=== PATIENT | female | born 1945 | race Caucasian/White ===

== ENCOUNTER → 2016-02-23 | Outpatient (CLI) | payer MEDICARE, BC ==
--- NOTE | 2016-02-23 11:38 | MM ---
Reason for exam: follow-up at short interval from prior study. Last mammogram was performed 4 years and 4 months ago. History: Patient is postmenopausal and is nulliparous. Physical Findings: Nurse did not find any significant physical abnormalities on exam. MG 3D Diag Mammo W/Cad LT CC and MLO view(s) were taken of the left breast. Prior study comparison: November 02, 2011, bilateral digital screening mammo w/CAD. April 30, 2008, bilateral digital screening mammogram. There are scattered fibroglandular densities. There is chronic nodularity in the left breast. There is no dominant lesion. No significant new findings when compared with previous films. These results were verbally communicated with the patient and result sheet given to the patient on 02/23/16. ASSESSMENT: Benign, BI-RAD 2 RECOMMENDATION: Routine screening mammogram of both breasts in 6 months. Back on schedule.
== END | disposition home or self-care (01) ==
LOC: RADMAMWWP 10:11
PROVIDERS: ATTEND Obstetrics & Gynecology
DX: R92.8 Other abnormal and inconclusive findings on diagnostic imaging of breast (principal)
CPT/HCPCS: 77051; G0206; G0279

== ENCOUNTER 2016-07-10 09:14 | Emergency (ER) | payer MEDICARE, BC ==
[2016-07-10 09:20] VITALS: BP 183/79; PULSE 74; RESP 20; TEMP 98.1
--- NOTE | 2016-07-10 09:49 | ED ---
General Adult HPI - General Chief complaint: Dental/Oral Stated complaint: tounge problem Time Seen by Provider: 07/10/16 09:23 Source: patient, RN notes reviewed Mode of arrival: ambulatory Limitations: no limitations - History of Present Illness Initial comments: Patient 71-year-old female who presents emergency room today with a chief complaint of a cut to the tip of her tongue. She states she was at the dentist on July 05. She states she had to controls working on her bottom teeth. She states she was numbed up she felt fine when she went home she noticed that there was some blood at the tip of her tongue. She states she's had increased sensitivity to this area over the last 5 days. She states over the first few days she did notice some blood at times. She states she's not noticed any blood the last few days. She states it is still very tender and sensitive to certain foods and at times. She denies any other complaints or states she can no longer see the cut herself. She states she came here because she did not know what else to do. She states she had thoughts of talking to an commercial real estate attorney about this case she feels like it is not right that the cut her tongue because they were only supposed to work on her teeth. Patient denies any other complaints or symptoms. Patient denies any recent fever, chills, shortness of breath, chest pain, back pain, abdominal pain, nausea or vomiting, numbness or tingling, dysuria or hematuria, constipation or diarrhea, headaches or visual changes, or any other complaints. - Related Data Home Medications Medication Instructions Recorded Confirmed Levothyroxine Sodium [Synthroid] 25 mcg PO DAILY 07/10/16 07/10/16 Simvastatin [Zocor] 20 mg PO HS 07/10/16 07/10/16 busPIRone HCl [Buspar] 5 mg PO BID 07/10/16 07/10/16 Allergies Allergy/AdvReac Type Severity Reaction Status Date / Time No Known Allergies Allergy Verified 07/10/16 09:20 Review of Systems ROS Statement: Those systems with pertinent positive or pertinent negative responses have been documented in the HPI. ROS Other: All systems not noted in ROS Statement are negative. Past Medical History Past Medical History: Hyperlipidemia, Thyroid Disorder History of Any Multi-Drug Resistant Organisms: None Reported Past Surgical History: No Surgical Hx Reported Past Psychological History: Depression Smoking Status: Former smoker Past Alcohol Use History: None Reported Past Drug Use History: None Reported General Exam - General Exam Comments Initial Comments: General: The patient is awake and alert, in no distress, and does not appear acutely ill. Eye: Pupils are equal, round and reactive to light, extra-ocular movements are intact. No nystagmus. There is normal conjunctiva bilaterally. No signs of icterus. Ears, nose, mouth and throat: There are moist mucous membranes and no oral lesions. No evidence for a cut. No sign of infection. No tenderness over the gumline. Neck: The neck is supple. No JVD. Cardiovascular: There is a regular rate and rhythm. No murmur, rub or gallop is appreciated. Respiratory: Lungs are clear to auscultation, respirations are non-labored, breath sounds are equal. No wheezes, stridor, rales, or rhonchi. Musculoskeletal: Normal ROM, no tenderness. Strength 5/5. Sensation intact. Pulses equal bilaterally 2+. Neurological: A&O x 3. CN II-XII intact, There are no obvious motor or sensory deficits. Coordination appears grossly intact. Speech is normal. Skin: Skin is warm and dry and no rashes or lesions are noted. Psychiatric: Cooperative, appropriate mood & affect, normal judgment. Limitations: no limitations Course Vital Signs 07/10/16 09:16 Temperature 98.1 F Pulse Rate 74 Respiratory 20 Rate Blood Pressure 183/79 O2 Sat by Pulse 96 Oximetry Medical Decision Making - Medical Decision Making Patient is advised follow-up the dentist and she is advised to bring up her concerns to the dentist first before any work is performed. She is advised to continue with her pain medicine of Tylenol and Aleve at home that she's been taking with some relief of the symptoms. She is advised return to the emergency room for any other concerns. Disposition Clinical Impression: Painful tongue Disposition: HOME SELF-CARE Condition: Good Additional Instructions: Please continue using your pain medicine that you have been for the last few days for your symptoms. Please follow-up with your dentist over the next 2 days. Please bring appear concerns to him as discussed. Please return to emergency room for any other concerns. Referrals: Agnieszka Street MD [Primary Care Provider] - 1-2 days Time of Disposition: 09:48
== END 2016-07-10 09:55 | disposition home or self-care (01) ==
LOC: EC 09:14
DX: K14.6 Glossodynia (principal); E78.5 Hyperlipidemia, unspecified; E07.9 Disorder of thyroid, unspecified; F32.9 Major depressive disorder, single episode, unspecified; Z87.891 Personal history of nicotine dependence; Z79.899 Other long term (current) drug therapy
CPT/HCPCS: 99282

== ENCOUNTER → 2016-09-02 | Outpatient (CLI) | payer MEDICARE, BC ==
--- NOTE | 2016-09-02 10:13 | MM ---
Reason for exam: screening (asymptomatic). Last mammogram was performed 6 months ago. History: Patient is postmenopausal and is nulliparous. Physical Findings: A clinical breast exam by your physician is recommended on an annual basis and results should be correlated with mammographic findings. MG 3D Screening Mammo W/Cad Bilateral CC and MLO view(s) were taken. Prior study comparison: February 23, 2016, left breast MG 3d diag mammo w/cad LT. November 02, 2011, bilateral digital screening mammo w/CAD. The breast tissue is heterogeneously dense. This may lower the sensitivity of mammography. Finding: There are vascular calcifications. There is no discrete abnormality. No significant changes in finding since February 23, 2016 and November 02, 2011. These results were verbally communicated with the patient and result sheet given to the patient on 09/02/16. ASSESSMENT: Benign, BI-RAD 2 RECOMMENDATION: Routine screening mammogram of both breasts in 1 year.
== END | disposition home or self-care (01) ==
LOC: RADMAMWWP 09:22
PROVIDERS: ATTEND Obstetrics & Gynecology
DX: Z12.31 Encounter for screening mammogram for malignant neoplasm of breast (principal)
CPT/HCPCS: 77063; G0202

== ENCOUNTER → 2018-04-17 | Outpatient (CLI) | payer MEDICARE, BC ==
--- NOTE | 2018-04-17 17:09 | CT ---
EXAMINATION TYPE: CT brain wo con DATE OF EXAM: 04/17/2018 HISTORY: Dizziness and unsteady gait CT DLP: 1135 mGycm. Automated Exposure Control for Dose Reduction was Utilized. TECHNIQUE: CT scan of the head is performed without contrast. COMPARISON: None. FINDINGS: There is no acute intracranial hemorrhage or midline shift identified. There is diffuse v entricular and sulcal prominence consistent with diffuse age-related cerebral atrophy. There is low- attenuation in the periventricular white matter consistent with chronic small vessel ischemic change. There is old infarct involving periphery of the right frontal and temporal lobes. The globes are int act and the visualized sinuses are clear. IMPRESSION: No acute intracranial hemorrhage or midline shift. 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
== END | disposition home or self-care (01) ==
LOC: RADCTMAIN 15:40
PROVIDERS: ATTEND Family Medicine
DX: G31.1 Senile degeneration of brain, not elsewhere classified (principal); I67.82 Cerebral ischemia
CPT/HCPCS: 70450

== ENCOUNTER → 2018-05-24 | Outpatient (CLI) | payer MEDICARE, BC ==
--- NOTE | 2018-05-24 11:24 | US ---
EXAMINATION TYPE: US thyroid st tissue head/neck DATE OF EXAM: 05/24/2018 COMPARISON: US CLINICAL HISTORY: E03.8 Other specified hypothyroidism. Hypothyroidism, pt states difficulty swallowi ng, coughing GLAND SIZE: Right Lobe: 3.1 X 0.9 X 1.2 cm Overall Parenchyma: homogenous Left Lobe: 2.9 X 0.8 X 1.1 cm Overall Parenchyma: homogeneous Isthmus Thickness: 0.2 cm NODULES LEFT: # of nodules measured on left: 1 1. 0.3 X 0.3 x 0.2 cm hypoechoic solid nodule at the upper pole with well-defined margins; This no dule is wider than tall and shows intranodular vascularity. Prior size: Not visualized on prior Bilateral neck scanned, no evidence of lymphadenopathy. Small thyroid gland bilaterally, Small nodule on left lobe. Homogeneous small size thyroid with tiny 3 mm medial nodule left thyroid lobe marked by technologist on current study image 27. IMPRESSION: Small size thyroid without worrisome greater than 1 cm solid or cystic nodule.
== END ==
LOC: RADUSWWP 10:31
PROVIDERS: ATTEND Internal Medicine Endocrinology, Diabetes & Metabolism
DX: E07.89 Other specified disorders of thyroid (principal)
CPT/HCPCS: 76536

== ENCOUNTER → 2018-06-09 | Outpatient (CLI) | payer MEDICARE, BC ==
--- NOTE | 2018-06-13 13:22 | MM ---
Reason for exam: screening (asymptomatic). Last mammogram was performed 1 year and 9 months ago. History: Patient is postmenopausal and is nulliparous. Physical Findings: A clinical breast exam by your physician is recommended on an annual basis and results should be correlated with mammographic findings. MG 3D Screening Mammo W/Cad Bilateral CC and MLO view(s) were taken. Prior study comparison: September 02, 2016, bilateral MG 3d screening mammo w/cad. February 23, 2016, left breast MG 3d diag mammo w/cad LT. The breast tissue is heterogeneously dense. This may lower the sensitivity of mammography. Left superior anterior asymmetric density partially disperses on 3D. Otherwise, no significant new finding. ASSESSMENT: Incomplete: need additional imaging evaluation, BI-RAD 0 RECOMMENDATION: Special view mammogram of the left breast. (3D) Manage on a clinical basis with regard to breast pain. If lesion persists on supplemental views, image directed ultrasound is recommended. [facility] will attempt to contact patient to return for supplemental views and ultrasound if indicated.
== END | disposition home or self-care (01) ==
LOC: RADMAMWWP 13:46
PROVIDERS: ATTEND Obstetrics & Gynecology
DX: Z12.31 Encounter for screening mammogram for malignant neoplasm of breast (principal)
CPT/HCPCS: 77063; 77067

== ENCOUNTER → 2018-06-15 | Outpatient (CLI) | payer MEDICARE, BC ==
--- NOTE | 2018-06-15 13:12 | MM ---
Reason for exam: additional evaluation requested from abnormal screening. Last mammogram was performed less than 1 month ago. History: Patient is postmenopausal and is nulliparous. Physical Findings: Nurse did not find any significant physical abnormalities on exam. MG 3D Work Up W/Cad LT Spot compression CC and LM view(s) were taken of the left breast. Prior study comparison: June 09, 2018, bilateral MG 3d screening mammo w/cad. September 02, 2016, bilateral MG 3d screening mammo w/cad. The breast tissue is heterogeneously dense. This may lower the sensitivity of mammography. The previously seen abnormality resolves on additional views and appears as fibroglandular tissue compatible with summation. Left upper outer quadrant middle depth focal asymmetry appears similar to 2016. These results were verbally communicated with the patient and result sheet given to the patient on 06/15/18. ASSESSMENT: Negative, BI-RAD 1 RECOMMENDATION: Return to routine screening mammogram schedule for both breasts.
== END | disposition home or self-care (01) ==
LOC: RADMAMWWP 11:43
PROVIDERS: ATTEND Obstetrics & Gynecology
DX: R92.8 Other abnormal and inconclusive findings on diagnostic imaging of breast (principal)
CPT/HCPCS: 77065; G0279; 77061

== ENCOUNTER 2018-10-06 11:49 | Emergency (ER) | payer MEDICARE, BC ==
[2018-10-06 11:58] VITALS: BP 142/88; PULSE 72; RESP 18; TEMP 98.1
--- NOTE | 2018-10-06 13:54 | XR ---
EXAMINATION TYPE: XR Hip LT and AP Pelvis DATE OF EXAM: 10/06/2018 COMPARISON: NONE HISTORY: Pain from fall 2 months prior TECHNIQUE: A single AP view of the pelvis is obtained. Two views of the left hip are obtained. FINDINGS: There is no acute fracture/dislocation evident in the pelvis. The hip and sacroiliac join ts appear symmetric and unremarkable. The overlying soft tissue appears unremarkable. Two views of left hip show no acute fracture or dislocation. No focal lytic or sclerotic lesion seen in the proximal left femur. The overlying soft tissue is unremarkable. Degenerative disc changes are present in the lumbar spine. Vascular calcifications present within the pelvis. IMPRESSION: There is no acute fracture or dislocation in the pelvis or left hip. Degenerative disc d isease lumbar spine.
--- NOTE | 2018-10-06 13:58 | XR ---
Left knee HISTORY: Pain from fall 2 months prior 3 views of left knee Bone mineralization, joint spaces and alignment are maintained. No evident joint effusion. IMPRESSION: No fracture or dislocation.
--- NOTE | 2018-10-06 14:08 | XR ---
Left shoulder and left humerus HISTORY: Trauma 2 minutes prior, pain 3 views of the left shoulder, 2 views of the left humerus Bone mineralization mildly reduced. Joint spaces and alignment are maintained. Soft tissue ossificati on present at the lateral aspect of the left upper extremity measuring 9 mm is indeterminate. No evid ent elbow joint effusion. IMPRESSION: No fracture or dislocation of the left humerus or shoulder.
--- NOTE | 2018-10-06 14:09 | CT ---
EXAMINATION TYPE: CT cervical spine wo con DATE OF EXAM: 10/06/2018 COMPARISON: None HISTORY: Fall, pain CT DLP: 262.[address] of the cervical spine was performed with bone and soft tissue window settings submitted . Coronal and sagittal reconstruction is obtained. C2-3: Within normal limits C3-4: 4 mm anterolisthesis of C3 on C4 related to severe arthropathy of the cervical apophyseal joint s. Severe degenerative change noted. Posterior disc bulge. No central stenosis. Bilateral foraminal e ncroachment. C4-5: Severe disc desiccation. Endplate sclerosis with ventral and dorsal spondylosis. Effacement robyn tral thecal sac with mild central stenosis. Bilateral foraminal encroachment. C5-6:Severe disc desiccation. Endplate sclerosis with ventral and dorsal spondylosis. Effacement vent ral thecal sac with mild central stenosis. Bilateral foraminal encroachment. C6-7:Severe disc desiccation. Endplate sclerosis with ventral and dorsal spondylosis. Effacement vent ral thecal sac with mild central stenosis. Bilateral foraminal encroachment. C7-T1: Severe disc desiccation. Ventral and dorsal spondylosis. No herniation or central stenosis. No foraminal encroachment. No evidence for acute fracture at this time. IMPRESSION: 1. Multilevel degenerative disc disease and central stenosis. Anterolisthesis C3 on C4.
--- NOTE | 2018-10-06 14:21 | CT ---
EXAMINATION TYPE: CT thor lumbar spine wo con DATE OF EXAM: 10/06/2018 COMPARISON: None HISTORY: Fall, pain CT DLP: 877.[address] of the gastric and lumbar spine was performed. Bone and soft tissue window settings ar e submitted as well as coronal and sagittal reconstructions. Thoracic spine: Curvature convex to the right. T8-T12 vacuum disc noted with endplate sclerosis and i rregularity seen. Ventral spondylosis. Posterior disc bulge. No central stenosis or nic herniation. Remaining levels are within normal limits. Lumbar spine: Grade 1 anterolisthesis L5 on S1 of 7.7 mm with bilateral spondylolysis. Bilateral fora holly encroachment. Vacuum disc at all lumbar levels with endplate sclerosis and irregularity seen. V entral and dorsal spondylosis noted. L2-3 mild central stenosis. Foraminal encroachment and facet gali nt arthropathy at all levels. No paraspinal masses are identified. No compression fractures or bony destructive processes are evide nt. IMPRESSION: 1. Multilevel degenerative disc disease and spondylosis. 2. Grade 1 anterolisthesis L5 on S1 with bilateral spondylolysis. 3. No acute fracture seen.
--- NOTE | 2018-10-06 15:02 | ED ---
Fall HPI - General Chief Complaint: Fall Stated Complaint: bilat knee pain Time Seen by Provider: 10/06/18 11:55 Source: patient Mode of arrival: ambulatory Limitations: no limitations - History of Present Illness Initial Comments: The patient is a 73-year-old female who presents to the emergency department with reported fall 2 months ago. States that she was attempting to cross the street when she tripped and fell onto the concrete. She fell onto her left side. She refused hospital transfer at that time. Denied any blunt head trauma. She states that progressively since the incident she's been having left shoulder and left knee pain. She has not followed up with her primary care physician for evaluation. She normally takes NSAIDs at home for the pain. States that it has been controlled. As the pain has been persistent, she did present today for evaluation. She is right hand dominant. She denies any neck pain. Does report to thoracic and lumbar back pain which is chronic. Denies any fevers or chills. Denies any bowel or bladder incontinence. No saddle anesthesia. Denies any weakness in her upper extremities. No numbness or tingling. Denies any chest pain or shortness breath. There are no other alleviating, precipitating or modifying factors - Related Data Home Medications Medication Instructions Recorded Confirmed busPIRone HCl [Buspar] 5 mg PO DAILY 07/10/16 10/06/18 Levothyroxine Sodium [Synthroid] 50 mcg PO DAILY 10/06/18 10/06/18 Lovastatin [Mevacor] 40 mg PO DAILY 10/06/18 10/06/18 Allergies Allergy/AdvReac Type Severity Reaction Status Date / Time No Known Allergies Allergy Verified 10/06/18 14:35 Review of Systems ROS Statement: Those systems with pertinent positive or pertinent negative responses have been documented in the HPI. ROS Other: All systems not noted in ROS Statement are negative. Past Medical History Past Medical History: Hyperlipidemia, Thyroid Disorder History of Any Multi-Drug Resistant Organisms: None Reported Past Surgical History: No Surgical Hx Reported Past Psychological History: Anxiety, Depression Smoking Status: Former smoker Past Alcohol Use History: None Reported Past Drug Use History: None Reported General Exam Limitations: no limitations General appearance: alert, in no apparent distress Head exam: Present: atraumatic, normocephalic, normal inspection Eye exam: Present: normal appearance, PERRL, EOMI. Absent: scleral icterus, conjunctival injection, periorbital swelling Neck exam: Present: normal inspection, tenderness (mild tenderness of the paraspinal muscles C2-C4. No step offs or deformities. Negative Spurling.). Absent: meningismus, lymphadenopathy Respiratory exam: Present: normal lung sounds bilaterally. Absent: respiratory distress, wheezes, rales, rhonchi, stridor Cardiovascular Exam: Present: regular rate, normal rhythm, normal heart sounds. Absent: systolic murmur, diastolic murmur, rubs, gallop, clicks GI/Abdominal exam: Present: soft, normal bowel sounds. Absent: distended, tenderness, guarding, rebound, rigid Extremities exam: Present: normal inspection, full ROM, normal capillary refill, other (the patient has tenderness with the lift off test and empty can test. She has 2+ radial and ulnar pulses. Comartments are soft in the upper extremities. She has tenderness to palpation of the glenohumeral joint. She does continue to have 5/5 muscle strength in the bilateral upper extremities. ). Absent: tenderness, pedal edema, joint swelling, calf tenderness Back exam: Present: normal inspection Neurological exam: Present: alert, oriented X3, CN II-XII intact Psychiatric exam: Present: normal affect, normal mood Skin exam: Present: warm, dry, intact, normal color. Absent: rash Course Vital Signs 10/06/18 11:53 Temperature 98.1 F Pulse Rate 72 Respiratory 18 Rate Blood Pressure 142/88 O2 Sat by Pulse 97 Oximetry Medical Decision Making - Medical Decision Making Upon arrival, the patient is placed in room 28. I did perform a full physical exam. I did recommend a CT of the patient's cervical spine as well as her thoracic and lumbar spine. I also recommended x-rays of the patient's left shoulder, left humerus and left knee. I offered the patient something for pain control however she refused. After the studies were performed I did discuss results with the patient. At this time she will be discharged home. She has previous seen Dr. Sanchez in the past for right shoulder pain. I did refer her back to his office. I informed her that she may need an MRI of her left shoulder and spine. The patient is seen ambulatory in the hallway. She does agree to the treatment plan and is eager to leave. All of her questions were answered. She is to continue taking NSAIDs at home as needed for pain. She was then discharged home in stable condition - Differential Diagnosis hx of fall, left shoulder pain, left knee pain, eval for fx Disposition Clinical Impression: Fall, Left shoulder pain, Left knee pain Disposition: HOME SELF-CARE Condition: Stable Instructions (If sedation given, give patient instructions): Shoulder Pain (ED) Additional Instructions: Please follow-up with Dr. Sanchez within one week. Return to the emergency room for any new or worsening symptoms. You may need further imaging of your shoulder to include an MRI. Is patient prescribed a controlled substance at d/c from ED?: No Referrals: Agnieszka Street MD [Primary Care Provider] - 1-2 days Jason Sanchez MD [REFERRING] - 1-2 days Time of Disposition: 15:02
== END 2018-10-06 15:21 | disposition home or self-care (01) ==
LOC: EC 11:49
DX: M25.562 Pain in left knee (principal); M25.512 Pain in left shoulder; M25.561 Pain in right knee; M54.6 Pain in thoracic spine; M54.5 Low back pain; E78.5 Hyperlipidemia, unspecified; E07.9 Disorder of thyroid, unspecified; F41.9 Anxiety disorder, unspecified; F32.9 Major depressive disorder, single episode, unspecified; Z87.891 Personal history of nicotine dependence; Z79.890 Hormone replacement therapy; Z79.899 Other long term (current) drug therapy; Z53.29 Procedure and treatment not carried out because of patient's decision for other reasons; W01.0XXA Fall on same level from slipping, tripping and stumbling without subsequent striking against object, initial encounter; Y92.410 Unspecified street and highway as the place of occurrence of the external cause
CPT/HCPCS: 72125; 72128; 72131; 73502; 99284

== ENCOUNTER 2019-08-22 13:04 | Emergency (ER) | payer BC, MEDICARE ==
--- NOTE | 2019-08-22 14:34 | ED ---
Fall HPI - General Chief Complaint: Fall Stated Complaint: slip & fall/shoulder pain Time Seen by Provider: 08/22/19 14:02 Source: patient Mode of arrival: wheelchair - History of Present Illness Initial Comments: Patient is 74-year-old female presenting to emergency Department with chief complaint of fall. Patient states the incident occurred yesterday while she was in the bathtub. Patient states she slipped and fell in the occipital region of her head. Denies any loss of consciousness. States she continues to have pain in the left shoulder and the left trapezius along the left side of neck. Patient denies unsteady gait, one-sided weakness or paresthesias or any visual changes. Denies any chest pain or shortness of breath. States she is not on blood thinners. States she does not drive, so she waited until today to get a ride in order to come to the ED. - Related Data Home Medications Medication Instructions Recorded Confirmed busPIRone HCl [Buspar] 5 mg PO DAILY 07/10/16 10/06/18 Levothyroxine Sodium [Synthroid] 50 mcg PO DAILY 10/06/18 10/06/18 Lovastatin [Mevacor] 40 mg PO DAILY 10/06/18 10/06/18 Allergies Allergy/AdvReac Type Severity Reaction Status Date / Time No Known Allergies Allergy Verified 08/22/19 13:30 Review of Systems ROS Statement: Those systems with pertinent positive or pertinent negative responses have been documented in the HPI. ROS Other: All systems not noted in ROS Statement are negative. Past Medical History Past Medical History: Hyperlipidemia, Thyroid Disorder History of Any Multi-Drug Resistant Organisms: None Reported Past Surgical History: No Surgical Hx Reported Past Psychological History: Anxiety, Depression Smoking Status: Former smoker Past Alcohol Use History: None Reported Past Drug Use History: None Reported General Exam Limitations: no limitations General appearance: alert, in no apparent distress Head exam: Present: atraumatic, normocephalic, normal inspection. Absent: other (Negative Mcgill sign, negative hemotympanum, negative raccoon eyes.) Eye exam: Present: normal appearance, PERRL, EOMI. Absent: scleral icterus, conjunctival injection, nystagmus Pupils: Present: normal accommodation ENT exam: Present: normal exam, normal oropharynx, mucous membranes moist, TM's normal bilaterally, normal external ear exam Neck exam: Present: normal inspection, full ROM. Absent: tenderness, meningismus Respiratory exam: Present: normal lung sounds bilaterally. Absent: respiratory distress, wheezes Cardiovascular Exam: Present: regular rate, bradycardia, normal heart sounds Extremities exam: Present: normal inspection, full ROM. Absent: tenderness Back exam: Present: normal inspection, full ROM. Absent: tenderness, vertebral tenderness Neurological exam: Present: alert, oriented X3 Psychiatric exam: Present: normal affect, normal mood Skin exam: Present: warm, dry, intact, normal color Course Vital Signs 08/22/19 08/22/19 13:26 16:59 Temperature 99.6 F 98.0 F Pulse Rate 77 55 L Respiratory 18 16 Rate Blood Pressure 149/63 180/99 O2 Sat by Pulse 97 99 Oximetry Medical Decision Making - Medical Decision Making patient is 74-year-old female presenting to the emergency department with a chief complaint of fall. Physical examination reveals some tenderness along the left shoulder trapezius and left side of the neck. No midline cervical tenderness. Pain and C-spine shows no signs of acute intracranial processes, dislocations or fractures. 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 Atrophy noted in the brain as well. 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 X-ray of the left shoulder is unremarkable. EKG shows sinus bradycardia with short IA interval. CBC CMP unremarkable. Coags within normal limits. Patient on blood thinners. Patient to follow-up with her family care physician. Return parameters were thoroughly discussed with patient is a nursing agreeable. Case discussed with physician. - Lab Data Result diagrams: 08/22/19 14:51 08/22/19 14:51 Lab Results 08/22/19 08/22/19 08/22/19 Range/Units 14:51 14:51 14:51 WBC 6.1 (3.8-10.6) k/uL RBC 4.42 (3.80-5.40) m/uL Hgb 14.3 (11.4-16.0) gm/dL Hct 43.0 (34.0-46.0) % MCV 97.2 (80.0-100.0) fL MCH 32.4 (25.0-35.0) pg MCHC 33.3 (31.0-37.0) g/dL RDW 12.6 (11.5-15.5) % Plt Count 166 (150-450) k/uL Neutrophils % 70 % Lymphocytes % 18 % Monocytes % 7 % Eosinophils % 3 % Basophils % 1 % Neutrophils # 4.3 (1.3-7.7) k/uL Lymphocytes # 1.1 (1.0-4.8) k/uL Monocytes # 0.4 (0-1.0) k/uL Eosinophils # 0.2 (0-0.7) k/uL Basophils # 0.1 (0-0.2) k/uL PT 9.7 (9.0-12.0) sec INR 0.9 (<1.2) APTT 21.6 L (22.0-30.0) sec Sodium 142 (137-145) mmol/L Potassium 4.0 (3.5-5.1) mmol/L Chloride 109 H (98-107) mmol/L Carbon Dioxide 26 (22-30) mmol/L Anion Gap 7 mmol/L BUN 16 (7-17) mg/dL Creatinine 0.74 (0.52-1.04) mg/dL Est GFR (CKD-EPI)AfAm >90 (>60 ml/min/1.73 sqM) Est GFR (CKD-EPI)NonAf 81 (>60 ml/min/1.73 sqM) Glucose 107 H (74-99) mg/dL Calcium 10.0 (8.4-10.2) mg/dL Total Bilirubin 0.4 (0.2-1.3) mg/dL AST 22 (14-36) U/L ALT 15 (4-34) U/L Alkaline Phosphatase 71 (38-126) U/L Total Protein 5.9 L (6.3-8.2) g/dL Albumin 4.0 (3.5-5.0) g/dL - EKG Data EKG Comments: Sinus bradycardia with short IA. Disposition Clinical Impression: Fall Disposition: HOME SELF-CARE Condition: Stable Instructions (If sedation given, give patient instructions): Fall Prevention (ED) Additional Instructions: Follow-up with her primary care. Return to emergency department if symptoms worsen. Is patient prescribed a controlled substance at d/c from ED?: No Referrals: Agnieszka Street MD [Primary Care Provider] - 1-2 days Time of Disposition: 16:37
[2019-08-22 14:58] LABS: Basophils # (A) 0.1 k/uL (0-0.2); Basophils % (A) 1 %; Eosinophils # (A) 0.2 k/uL (0-0.7); Eosinophils % (A) 3 %; HGB 14.3 gm/dL (11.4-16.0); Lymphocytes # (A) 1.1 k/uL (1.0-4.8); Lymphocytes % (A) 18 %; MCH 32.4 pg (25.0-35.0); MCHC 33.3 g/dL (31.0-37.0); MCV 97.2 fL (80.0-100.0); Monocytes # (A) 0.4 k/uL (0-1.0); Monocytes % (A) 7 %; Neutrophils # (A) 4.3 k/uL (1.3-7.7); Neutrophils % (A) 70 %; Platelet Count 166 k/uL (150-450); RBC 4.42 m/uL (3.80-5.40); RDW 12.6 % (11.5-15.5); WBC 6.1 k/uL (3.8-10.6)
[2019-08-22 15:06] LABS: ALT 15 U/L (4-34); AST 22 U/L (14-36); African American GFR (CKD) >90 (>60 ml/min/1.73 sqM); Alkaline Phosphatase 71 U/L (38-126); Anion Gap 7 mmol/L; Blood Urea Nitrogen 16 mg/dL (7-17); Carbon Dioxide 26 mmol/L (22-30); Chloride 109 mmol/L (98-107); Glucose 107 mg/dL (74-99); Non-African American GFR(CKD) 81 (>60 ml/min/1.73 sqM); Sodium 142 mmol/L (137-145); Total Bilirubin 0.4 mg/dL (0.2-1.3); Total Protein 5.9 g/dL (6.3-8.2)
--- NOTE | 2019-08-22 15:16 | CT ---
EXAMINATION TYPE: CT brain ashley soriano con DATE OF EXAM: 08/22/2019 COMPARISON: 10/06/2018, 04/17/2018 HISTORY: Fall, injury CT DLP: 1176 mGycm, Automated exposure control for dose reduction was used. CONTRAST: Patient injected with 0 mL of Isovue 300. CT of the brain is performed utilizing 3 mm thick sections through the posterior fossa and 3 mm thick sections through the remaining calvarium. Study is performed within 24 hours of arrival to the hospital. No abnormal hyperdensity is present to suggest an acute intracranial hemorrhage. No mass lesion is evident. No acute infarcts are evident. There is an old infarct in the right temporal lobe. Some ischemic typ e infarct appears to be present within the frontal parietal region on the right. Ventricles and sulci are prominent for the patient age. This is more so noted at the prior right side infarct. Paranasal sinuses and mastoid air cells within the [id number] are clear. IMPRESSIONS: 1. Old right parietal infarct. 2. Atrophy CT cervical spine. COMPARISON: 10/06/2018 CT of the cervical spine is performed in the axial plane at 2 mm thick sections. Reconstructed image s in the coronal, and sagittal plane are reviewed on the computer. No acute fractures are evident. There is a cervical kyphosis present. There is anterior listhesis of C3 anteriorly on C4. This is sta ble in appearance Loss of disc height is present throughout the cervical spine but especially noted C4-5, C5-6, C6-7. P osterior endplate spurring is present at these levels. No AP spinal canal stenosis is present. Vertebral body heights are preserved. Uncovertebral joint hypertrophy is present on the right at C3-3-4 contributing to severe foraminal st enosis. Uncovertebral joint hypertrophy at C4-5 is present with right foraminal stenosis. IMPRESSIONS: 1. Cervical kyphosis. 2. Anterolisthesis of C3 on C4, stable from 2019. 3. Advanced degenerative disc changes with some adjacent endplate changes C4-5 C5-6 and C6-7.
[2019-08-22 15:19] LABS: INR 0.9 (<1.2); Prothrombin Time 9.7 sec (9.0-12.0)
--- NOTE | 2019-08-22 15:25 | XR ---
EXAMINATION TYPE: XR shoulder complete LT DATE OF EXAM: 08/22/2019 COMPARISON: NONE HISTORY: Pain TECHNIQUE: Three views are submitted. FINDINGS: The osseous structures are intact. There is no acute fracture or dislocation. Diffuse osteopenia and arthropathy of the AC joint.. IMPRESSION: 1. No acute process.
[2019-08-22 15:31] LABS: Partial Thromboplastin Time 21.6 sec (22.0-30.0)
[2019-08-24 09:28] VITALS: BP 180/99; PULSE 55; RESP 16; TEMP 98
== END 2019-08-22 16:59 | disposition home or self-care (01) ==
LOC: EC 13:04
DX: M50.30 Other cervical disc degeneration, unspecified cervical region (principal); G31.9 Degenerative disease of nervous system, unspecified; R00.1 Bradycardia, unspecified; M25.512 Pain in left shoulder; E78.5 Hyperlipidemia, unspecified; E07.9 Disorder of thyroid, unspecified; F41.9 Anxiety disorder, unspecified; F32.9 Major depressive disorder, single episode, unspecified; Z87.891 Personal history of nicotine dependence; Z79.890 Hormone replacement therapy; Z79.899 Other long term (current) drug therapy; W01.0XXA Fall on same level from slipping, tripping and stumbling without subsequent striking against object, initial encounter
CPT/HCPCS: 36415; 70450; 72125; 80053; 85025; 85610; 85730; 99284

== ENCOUNTER → 2020-06-02 | Outpatient (CLI) | payer MEDICARE ==
--- NOTE | 2020-06-02 13:19 | MR ---
EXAMINATION TYPE: MR brain and iac wo/w con DATE OF EXAM: 06/02/2020 COMPARISON: Correlation CT brain 08/22/2019 and 04/17/2018 HISTORY: 75 year-old female H91.90, left-sided loss, pain. TECHNIQUE: Multiplanar, multisequence images of the brain and brainstem were acquired before and aft er administration of 6 mL IV Gadavist. Diffusion weighted imaging was performed. Additional coned-d own sequences through the internal auditory canals and posterior cranial fossa before and after IV co ntrast administration. FINDINGS: Diffusion weighted images demonstrate no evidence of an acute ischemic lesion in the brain. T2/FLAIR weighted sequences show old encephalomalacia and gliosis involving the right frontotemporal lobes. Moderate scattered burden of T2 bright white matter change in the subcortical, deep, and periv entricular regions of both cerebral hemispheres. Axial T2* sequence shows no suspicious parenchymal susceptibility artifact to suggest prior intracran ial microbleeds. Midline structures demonstrate partially empty sella but otherwise normal morphology. The craniocerv ical junction is normal. There is moderate cerebral atrophy. The ventricles are of normal caliber. There is no evidence of an acute intracranial hemorrhage, infarct, mass, mass-effect or an extra-axia l fluid collection. There is no cerebellopontine angle mass. The internal auditory canals are symmetric. Brainstem and skull base abnormalities are not seen. Post contrast images demonstrate no evidence of pathologic enhancement in the posterior cranial altagracia a or the internal auditory canals. There is no abnormal enhancement of the labyrinths. Mild mucosal thickening ethmoid air cells. Trace fluid within the inferior mastoid air cells on both sides. Globes appear intact. Mildly hyperintense T2 and T1 hypointense, mildly enhancing lesion along the right calvarium correspo nds to sclerosis on patient's prior CT. This was present back to the 04/17/2018 CT suggesting a benign etiology such as a calvarial hemangioma. IMPRESSION: 1. Moderate cerebral atrophy. Old infarct with encephalomalacia and gliosis involving the right front otemporal lobe. Moderate scattered burden of chronic small vessel ischemic disease. 2. No acute intracranial abnormality seen. 3. No specific abnormality on acoustic MRI. 4. Trace fluid within the inferior mastoid air cells on both sides. Questionable clinical significanc e. Correlate for any mastoid pain to exclude mastoiditis. 5. Mild chronic ethmoid sinus disease.
== END | disposition home or self-care (01) ==
LOC: RADMRIMAIN 09:29
PROVIDERS: ATTEND Otolaryngology
DX: J32.2 Chronic ethmoidal sinusitis (principal); I67.82 Cerebral ischemia; G31.9 Degenerative disease of nervous system, unspecified
CPT/HCPCS: 70553; A9585

== ENCOUNTER → 2020-11-13 | Outpatient (CLI) | payer MEDICARE ==
--- NOTE | 2020-11-13 12:37 | XR ---
Left knee HISTORY: Trauma and pain 3 views of the left knee correlated to prior exam 10/06/2018 Bone mineralization, joint spaces, alignment are maintained the exception of some marginal spurring a nd joint space loss in the medial compartment. No fracture or dislocation. No periostitis to suggest fracture healing. There is no evident joint effusion. IMPRESSION: Mild osteoarthritic change. Consider knee MRI.
== END | disposition home or self-care (01) ==
LOC: RADXRWHC 12:00
PROVIDERS: ATTEND Family Medicine
DX: M25.562 Pain in left knee (principal)

== ENCOUNTER 2021-08-06 11:30 | Inpatient (IN) | payer MEDICARE, OTHER ==
[2021-08-06] MEDS ORDERED: PROCHLORPERAZINE INJ 10 MG/2 ML VIAL IM STA (12:33)
[2021-08-06] MEDS ORDERED: LORazepam 2 MG/ML INJ IM STA (12:47)
--- NOTE | 2021-08-06 12:58 | ED ---
Psych HPI - General Chief Complaint: Psychiatric Symptoms Stated Complaint: Anxiety Time Seen by Provider: 08/06/21 12:00 Source: family, police, EMS, RN notes reviewed Mode of arrival: EMS - History of Present Illness Initial Comments: 76-year-old female with a history of anxiety disorder who was brought him under petition for evaluation she was found in a local bank apparently noncommunicative very anxious. Upon arrival she was noted be noncommunicative she normally is verbal a care worker's with her on my exam. Patient was nauseated and was demonstrating some vomiting but she was swallowing it did not put into the basin she was given. She is unable answer questions. No reports of fevers chills sweats no trauma patient does evidently anxiety disorder but her caregiver states she's never seen quite this way before. MD Complaint: other - Related Data Home Medications Medication Instructions Recorded Confirmed busPIRone HCl [Buspar] 5 mg PO DAILY 07/10/16 08/06/21 Levothyroxine Sodium [Synthroid] 50 mcg PO DAILY 10/06/18 08/06/21 Lovastatin [Mevacor] 60 mg PO DAILY 10/06/18 08/06/21 Cyclobenzaprine [Flexeril] 5 mg PO HS PRN 08/06/21 08/06/21 Meloxicam [Mobic] 7.5 mg PO BID 08/06/21 08/06/21 Allergies Allergy/AdvReac Type Severity Reaction Status Date / Time No Known Allergies Allergy Verified 08/06/21 14:14 Review of Systems ROS Statement: Those systems with pertinent positive or pertinent negative responses have been documented in the HPI. ROS Other: All systems not noted in ROS Statement are negative. Limitations: ROS unobtainable due to patients medical condition Past Medical History Past Medical History: Hyperlipidemia, Thyroid Disorder History of Any Multi-Drug Resistant Organisms: None Reported Past Surgical History: No Surgical Hx Reported Past Psychological History: Anxiety, Depression Smoking Status: Never smoker Past Alcohol Use History: None Reported Past Drug Use History: None Reported General Exam - General Exam Comments Initial Comments: This a well-developed thin appearing female who is awake alert demonstrate hyperventilation and some eructation. General appearance: alert, anxious Head exam: Present: atraumatic, normocephalic, normal inspection Eye exam: Present: normal appearance, PERRL, EOMI. Absent: scleral icterus, conjunctival injection, periorbital swelling ENT exam: Present: mucous membranes dry Neck exam: Present: normal inspection, full ROM (No surgery or bruits) Respiratory exam: Present: other (Tachypnea). Absent: respiratory distress, wheezes, rales, rhonchi, stridor Cardiovascular Exam: Present: regular rate, normal rhythm, normal heart sounds. Absent: systolic murmur, diastolic murmur, rubs, gallop, clicks GI/Abdominal exam: Present: soft, normal bowel sounds. Absent: distended, tenderness, guarding, rebound, rigid Extremities exam: Present: normal inspection, full ROM, normal capillary refill. Absent: tenderness, pedal edema, joint swelling, calf tenderness Back exam: Present: normal inspection Neurological exam: Present: alert, oriented X3, CN II-XII intact Psychiatric exam: Present: anxious Skin exam: Present: warm, dry, intact, normal color. Absent: rash Course Vital Signs 08/06/21 08/06/21 11:41 17:11 Temperature 98.4 F Pulse Rate 66 Respiratory 26 H Rate Blood Pressure 185/122 O2 Sat by Pulse 95 Oximetry Medical Decision Making - Medical Decision Making Patient did require IV medication for anxiety. Patient will be admitted I did discuss case with Dr. Phan. Psychiatry will be consulted. - Lab Data Result diagrams: 08/06/21 15:38 08/06/21 16:02 Lab Results 08/06/21 08/06/21 08/06/21 Range/Units 15:38 16:02 16:21 WBC 14.5 H (3.8-10.6) k/uL RBC 4.90 (3.80-5.40) m/uL Hgb 15.9 (11.4-16.0) gm/dL Hct 47.7 H (34.0-46.0) % MCV 97.5 (80.0-100.0) fL MCH 32.6 (25.0-35.0) pg MCHC 33.4 (31.0-37.0) g/dL RDW 13.0 (11.5-15.5) % Plt Count 191 (150-450) k/uL MPV 9.4 Neutrophils % 91 % Lymphocytes % 5 % Monocytes % 2 % Eosinophils % 1 % Basophils % 0 % Neutrophils # 13.2 H (1.3-7.7) k/uL Lymphocytes # 0.8 L (1.0-4.8) k/uL Monocytes # 0.3 (0-1.0) k/uL Eosinophils # 0.1 (0-0.7) k/uL Basophils # 0.1 (0-0.2) k/uL Sodium 138 (137-145) mmol/L Potassium 3.6 (3.5-5.1) mmol/L Chloride 105 (98-107) mmol/L Carbon Dioxide 24 (22-30) mmol/L Anion Gap 9 mmol/L BUN 16 (7-17) mg/dL Creatinine 0.81 (0.52-1.04) mg/dL Est GFR (CKD-EPI)AfAm 82 (>60 ml/min/1.73 sqM) Est GFR (CKD-EPI)NonAf 71 (>60 ml/min/1.73 sqM) Glucose 154 H (74-99) mg/dL Calcium 9.2 (8.4-10.2) mg/dL Magnesium 1.9 (1.6-2.3) mg/dL Total Bilirubin 0.5 (0.2-1.3) mg/dL AST 25 (14-36) U/L ALT 20 (4-34) U/L Alkaline Phosphatase 81 (38-126) U/L Creatine Kinase 85 (30-135) U/L Total Protein 6.6 (6.3-8.2) g/dL Albumin 4.4 (3.5-5.0) g/dL Lipase 91 (23-300) U/L TSH 0.177 L (0.465-4.680) mIU/L Free T4 1.28 (0.78-2.19) ng/dL Urine Color Colorless Urine Appearance Clear (Clear) Urine pH 7.0 (5.0-8.0) Ur Specific [place] 1.008 (1.001-1.035) Urine Protein 1+ H (Negative) Urine Glucose (UA) Trace H (Negative) Urine Ketones 1+ H (Negative) Urine Blood Negative (Negative) Urine Nitrite Negative (Negative) Urine Bilirubin Negative (Negative) Urine Urobilinogen <2.0 (<2.0) mg/dL Ur Leukocyte Esterase Negative (Negative) Urine RBC 1 (0-5) /hpf Urine WBC <1 (0-5) /hpf Hyaline Casts 1 (0-2) /lpf Urine Mucus Rare H (None) /hpf Urine Opiates Screen (NotDetected) Ur Oxycodone Screen (NotDetected) Urine Methadone Screen (NotDetected) Ur Propoxyphene Screen (NotDetected) Ur Barbiturates Screen (NotDetected) U Tricyclic Antidepress (NotDetected) Ur Phencyclidine Scrn (NotDetected) Ur Amphetamines Screen (NotDetected) U Methamphetamines Scrn (NotDetected) U Benzodiazepines Scrn (NotDetected) Urine Cocaine Screen (NotDetected) U Marijuana (THC) Screen (NotDetected) Serum Alcohol <10 mg/dL Coronavirus (PCR) (Not Detectd) Influenza Type A RNA (Not Detectd) Influenza Type B (PCR) (Not Detectd) 08/06/21 08/06/21 08/06/21 Range/Units 16:21 17:15 17:15 WBC (3.8-10.6) k/uL RBC (3.80-5.40) m/uL Hgb (11.4-16.0) gm/dL Hct (34.0-46.0) % MCV (80.0-100.0) fL MCH (25.0-35.0) pg MCHC (31.0-37.0) g/dL RDW (11.5-15.5) % Plt Count (150-450) k/uL MPV Neutrophils % % Lymphocytes % % Monocytes % % Eosinophils % % Basophils % % Neutrophils # (1.3-7.7) k/uL Lymphocytes # (1.0-4.8) k/uL Monocytes # (0-1.0) k/uL Eosinophils # (0-0.7) k/uL Basophils # (0-0.2) k/uL Sodium (137-145) mmol/L Potassium (3.5-5.1) mmol/L Chloride (98-107) mmol/L Carbon Dioxide (22-30) mmol/L Anion Gap mmol/L BUN (7-17) mg/dL Creatinine (0.52-1.04) mg/dL Est GFR (CKD-EPI)AfAm (>60 ml/min/1.73 sqM) Est GFR (CKD-EPI)NonAf (>60 ml/min/1.73 sqM) Glucose (74-99) mg/dL Calcium (8.4-10.2) mg/dL Magnesium (1.6-2.3) mg/dL Total Bilirubin (0.2-1.3) mg/dL AST (14-36) U/L ALT (4-34) U/L Alkaline Phosphatase (38-126) U/L Creatine Kinase (30-135) U/L Total Protein (6.3-8.2) g/dL Albumin (3.5-5.0) g/dL Lipase (23-300) U/L TSH (0.465-4.680) mIU/L Free T4 (0.78-2.19) ng/dL Urine Color Urine Appearance (Clear) Urine pH (5.0-8.0) Ur Specific [place] (1.001-1.035) Urine Protein (Negative) Urine Glucose (UA) (Negative) Urine Ketones (Negative) Urine Blood (Negative) Urine Nitrite (Negative) Urine Bilirubin (Negative) Urine Urobilinogen (<2.0) mg/dL Ur Leukocyte Esterase (Negative) Urine RBC (0-5) /hpf Urine WBC (0-5) /hpf Hyaline Casts (0-2) /lpf Urine Mucus (None) /hpf Urine Opiates Screen Not Detected (NotDetected) Ur Oxycodone Screen Not Detected (NotDetected) Urine Methadone Screen Not Detected (NotDetected) Ur Propoxyphene Screen Not Detected (NotDetected) Ur Barbiturates Screen Not Detected (NotDetected) U Tricyclic Antidepress Not Detected (NotDetected) Ur Phencyclidine Scrn Not Detected (NotDetected) Ur Amphetamines Screen Not Detected (NotDetected) U Methamphetamines Scrn Not Detected (NotDetected) U Benzodiazepines Scrn Not Detected (NotDetected) Urine Cocaine Screen Not Detected (NotDetected) U Marijuana (THC) Screen Not Detected (NotDetected) Serum Alcohol mg/dL Coronavirus (PCR) Not Detected (Not Detectd) Influenza Type A RNA Not Detected (Not Detectd) Influenza Type B (PCR) Not Detected (Not Detectd) - Radiology Data Radiology results: report reviewed (Injury reviewed evidence of basilar infiltrate please a complete report), image reviewed Disposition Clinical Impression: Pneumonia, Acute anxiety, Dehydration Disposition: ADMITTED IP TO THIS HOSP Condition: Fair Referrals: Agnieszka Street MD [Primary Care Provider] - 1-2 days
--- NOTE | 2021-08-06 14:42 | CT ---
EXAMINATION TYPE: CT brain wo con DATE OF EXAM: 08/06/2021 COMPARISON: CT dated 08/22/2019 HISTORY: Altered mental status. CT DLP: 1109.4 mGycm Automated exposure control for dose reduction was used. TECHNIQUE: CT scan of the brain is performed without IV contrast administration. FINDINGS: Brain volume loss changes. Right frontal and right temporal chronic infarcts, appreciated previously. Surrounding gliotic changes. Left parietal subcortical white matter hypodensity, possibly ischemic. Arterial atherosclerotic calcifications. No acute intracranial hemorrhage. No gross acute cortical infarct. No midline shift or herniation. Un remarkable basal cisterns, sella and CP angles. No gross space-occupying lesion, vasogenic edema or m ass effect. Unremarkable orbits. Clear visualized paranasal sinuses and mastoid air cells. Osteopenia. Degenerati ve changes of the right TMJ. IMPRESSION: Brain volume loss changes and chronic infarcts as described above. No acute intracranial hemorrhage. No gross acute cortical infarct however a small acute or hyperacute infarct cannot be excluded. Other findings as described above.
--- NOTE | 2021-08-06 14:45 | XR ---
EXAMINATION TYPE: XR chest 2V DATE OF EXAM: 08/06/2021 COMPARISON: NONE TECHNIQUE: PA and lateral views submitted. HISTORY: Altered mental status FINDINGS: Hypertrophic and degenerative changes of the spine. Coarsened interstitium with biapical pleural thic kening but no pneumothorax. Heart size upper limits of normal. Subsegmental changes lung bases. IMPRESSION: 1. Correlate for chronic interstitial lung disease otherwise considered interstitial pneumonitis or b ronchitis. 2. Basilar atelectasis favored over pneumonia correlate clinically.
--- NOTE | 2021-08-06 14:46 | XR ---
EXAMINATION TYPE: XR KUB DATE OF EXAM: 08/06/2021 COMPARISON: NONE HISTORY: Pain TECHNIQUE: One view abdominal series FINDINGS: The osseous structures are intact. The bowel gas pattern is nonspecific. Hypertrophic and degenerati ve changes spine with scoliosis. Pelvic calcifications are nonspecific but likely vascular. Fused ost eopenia with arthropathy of the hips. IMPRESSION: 1. Nonspecific abdomen.
[2021-08-06 15:50] LABS: Basophils # (A) 0.1 k/uL (0-0.2); Basophils % (A) 0 %; Eosinophils # (A) 0.1 k/uL (0-0.7); Eosinophils % (A) 1 %; HCT 47.7 % (34.0-46.0); HGB 15.9 gm/dL (11.4-16.0); Lymphocytes # (A) 0.8 k/uL (1.0-4.8); Lymphocytes % (A) 5 %; MCH 32.6 pg (25.0-35.0); MCHC 33.4 g/dL (31.0-37.0); MCV 97.5 fL (80.0-100.0); Mean Platelet Volume 9.4; Monocytes # (A) 0.3 k/uL (0-1.0); Monocytes % (A) 2 %; Neutrophils # (A) 13.2 k/uL (1.3-7.7); Neutrophils % (A) 91 %; Platelet Count 191 k/uL (150-450); WBC 14.5 k/uL (3.8-10.6)
[2021-08-06 16:27] LABS: ALT 20 U/L (4-34); AST 25 U/L (14-36); African American GFR (CKD) 82 (>60 ml/min/1.73 sqM); Albumin 4.4 g/dL (3.5-5.0); Alcohol <10 mg/dL; Alkaline Phosphatase 81 U/L (38-126); Anion Gap 9 mmol/L; Blood Urea Nitrogen 16 mg/dL (7-17); Calcium 9.2 mg/dL (8.4-10.2); Carbon Dioxide 24 mmol/L (22-30); Chloride 105 mmol/L (98-107); Creatine Kinase 85 U/L (30-135); Glucose 154 mg/dL (74-99); Lipase 91 U/L (23-300); Magnesium 1.9 mg/dL (1.6-2.3); Non-African American GFR(CKD) 71 (>60 ml/min/1.73 sqM); Potassium 3.6 mmol/L (3.5-5.1); Sodium 138 mmol/L (137-145); Total Bilirubin 0.5 mg/dL (0.2-1.3); Total Protein 6.6 g/dL (6.3-8.2)
[2021-08-06 16:43] LABS: Appearance,Urine Clear (Clear); Bilirubin,Urine Negative (Negative); Blood,Urine Negative (Negative); Color,Urine Colorless; Glucose,Urine (UA) Trace (Negative); Hyaline Casts,Urine 1 /lpf (0-2); Ketones,Urine 1+ (Negative); Leukocyte Esterase,Urine Negative (Negative); Mucus,Urine Rare /hpf; Nitrite,Urine Negative (Negative); Protein,Urine 1+ (Negative); RBC,Urine 1 /hpf (0-5); Specific Gravity,Urine 1.008 (1.001-1.035); Urobilinogen,Urine <2.0 mg/dL (<2.0); WBC,Urine <1 /hpf (0-5)
[2021-08-06 16:44] LABS: Amphetamine Screen,Urine Not Detected (NotDetected); Barbiturate Screen,Urine Not Detected (NotDetected); Benzodiazepines Screen,Urine Not Detected (NotDetected); Cocaine Screen,Urine Not Detected (NotDetected); Methadone Screen, Urine Not Detected (NotDetected); Opiate Screen,Urine Not Detected (NotDetected); Oxycodone Screen, Urine Not Detected (NotDetected); Phencyclidine Screen,Urine Not Detected (NotDetected); Tricyclic Antidepressant,Urine Not Detected (NotDetected); Urn Cannabinoid Scrn Not Detected (NotDetected)
[2021-08-06 17:30] LABS: T4, Free (Free Thyroxine) 1.28 ng/dL (0.78-2.19)
[2021-08-06] MEDS ORDERED: cefTRIAXone IN SWFI 1,000 MG/10 ML SYRINGE IVP STA (17:51)
[2021-08-06] MEDS ORDERED: LORazepam 2 MG/ML INJ IV STA ×2 (17:53→20:31)
[2021-08-06] MEDS ORDERED: PNEUMONIA PROTOCOL UTILIZED 1 EACH MISC PO PRN (18:39)
[2021-08-06] MEDS ORDERED: AZITHROMYCIN 500 MG in SODIUM CHLORIDE 0.9% 250 ML IVPB STA (18:39)
[2021-08-06] MEDS ORDERED: CYCLOBENZAPRINE 5 MG TAB PO PRN (18:41)
[2021-08-06] MEDS ORDERED: diphenhydrAMINE 50 MG/ML 1 ML VIAL IVP STA (19:09)
[2021-08-06] MEDS: SODIUM CHLORIDE 0.9% 1,000 ML IV SCH (20:01)
[2021-08-06] MEDS ORDERED: HALOPERIDOL LACTATE 5 MG/ML 1 ML VIAL IM STA (20:30)
[2021-08-07] MEDS: MELOXICAM 7.5 MG TAB PO SCH ×3 (04:51→21:15)
[2021-08-07] MEDS: SODIUM CHLORIDE 0.9% 1,000 ML IV SCH ×2 (06:15→18:32)
[2021-08-07] MEDS: ATORVASTATIN 10 MG TAB PO SCH (07:13)
[2021-08-07] MEDS: LEVOTHYROXINE 50 MCG TAB PO SCH (07:13)
[2021-08-07] MEDS ORDERED: busPIRone HCl 5 MG TAB PO SCH (09:00)
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
--- NOTE | 2021-08-07 16:23 | P.CN ---
Psychiatric Consult - . Consult date: 08/07/21 Consult:: 08/07/21 15:21 IDENTIFYING DATA: This patient is a 76-year-old currently , has no kids, lives alone in a house. REASON FOR REFERRAL: Psychiatry was consulted for acute anxiety HISTORY OF PRESENT ILLNESS: The patient presented to the hospital on 08/06 and was brought in from a local bank as patient was very anxious. Patient currently was noncommunicative and altered mentation. She was also had nausea and vomiting. She is unable to give a appropriate history on admission. Patient's TSH was 0.177, free T4 was 1.28. Urine drug screen was negative. Patient was seen today living at the side of her bed and agreeable to speak to junior underwriter. She was slow to respond initially and answered in very concrete fashion. She was mildly confused. She knew that she was in [facility]. She did a full name. She does know today's date is July 2021 however does not know the actual day. She was difficult to engage with conversation and only responded to minimal questions. She is denying any anxiety at this time however does state that she does have a problem with anxiety and also depression. She claims that her sleep and appetite are fair . At this time patient denies any suicidal or homical ideations, intent or plan. Patient denies any auditory, visual hallucinations and denies any paranoia or delusions. Patients admits to using no recreational drugs or cigarettes PAST PSYCHIATRIC HISTORY: Patient has a a history of anxiety and depression. Patient is currently on BuSpar 5 mg daily for anxiety and also on Ativan when necessary. Patient denies any previous psychiatric hospitalizations. Patient denies any psychiatric outpatient follow-up. Patient denies any history of suicide attempts in the past. PAST MEDICAL HISTORY: As per medicine H&P. ALLERGIES: as per EMR. CHEMICAL DEPENDENCY HISTORY: as per HPI. FAMILY PSYCHIATRIC/SUBSTANCE USE HISTORY: denies SOCIAL HISTORY: Patient was born and raised in [facility] [facility]. She states that she completed high school. 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 MENTAL STATUS EXAM: General Appearance: Patient appears to be short in stature, mildly confused, stated age is alert, pleasant, and attempts to be cooperative. Patient appears to have fair hygiene and grooming wearing hospital gown with fair eye contact. Behavior: Patient is calmly lying in bed without any agitated behavior. Mildly confused. Speech: Patient's speech is fluent and nonpressured. Mood/Affect: Patient reports their mood is "anxious", affect is congruent Suicidality/Homicidality: Patient denies having any suicidal or homicidal ideation intent or plan. Perceptions: Patient denies any visual hallucinations and denies any auditory hallucinations Though content/process: concrete, monotone. logical Memory and concentration: AOX2, does not know todays date. Cannot spell "WORLD" backwards Judgment and insight: limited IMPRESSIONS: Post ictal seizure anxiety disorder NOS r/o panic disorder vs generalized anxiety disorder PLAN: -At this time patient DOES NOT meet criteria for inpatient psychiatric admission. -Would recommend the following medication changes/additions: d/c ativan prn and replaced with small dose of xanax, 0.25 mg tid prn for anxiety, added cymbalta 30 mg daily for anxiety/mood. d/c buspar due to lowering the seizure threshold. -dairy feed worker to provide patient with outpatient mental health/psychiatry resources for appropriate follow up upon discharge -Communicated plan to patient's nurse -Psychiatry will sign off at this time -Please contact with any questions.
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
[2021-08-07] MEDS: DULoxetine HCL 30 MG CAPSULE.DR PO SCH (18:32)
[2021-08-07] MEDS ORDERED: DIVALPROEX 500 MG TABLET.DR PO SCH (21:00)
[2021-08-07] MEDS: DIVALPROEX 500 MG TABLET.DR PO SCH (21:16)
--- NOTE | 2021-08-07 21:30 | US ---
EXAMINATION TYPE: US carotid duplex BILAT DATE OF EXAM: 08/07/2021 COMPARISON: NONE CLINICAL HISTORY: stroke. imbalance EXAM MEASUREMENTS: RIGHT: Peak Systolic Velocity (PSV) cm/sec ----- Right CCA: 63.6 ----- Right ICA: 122.6 ----- Right ECA: 60.1 ICA/CCA ratio: 1.9 RIGHT: End Diastole cm/sec ----- Right CCA: 15.3 ----- Right ICA: 35.4 ----- Right ECA: 6.9 LEFT: Peak Systolic Velocity (PSV) cm/sec ----- Left CCA: 81.9 ----- Left ICA: 109.7 ----- Left ECA: 61.0 ICA/CCA ratio: 1.3 LEFT: End Diastole cm/sec ----- Left CCA: 15.7 ----- Left ICA: 40.2 ----- Left ECA: 6.9 VERTEBRALS (direction of flow): Right Vertebral: Antegrade Left Vertebral: Antegrade Rhythm: Normal mild plaque bilateral bifurcations. tortuous bilateral ICA's. no evidence of significant stenosis IMPRESSION: There is antegrade flow in the vertebral arteries. The images and measurement suggests less than 20% stenosis in both internal carotid arteries. Criteria for Assigning % of Stenosis / Diameter reduction (Estimation based on the indirect measurements of the internal carotid artery velocities (ICA PSV). 1. Normal (no stenosis)=ICA PSV < 125 cm/s: ratio < 2.0: ICA EDV<40 cm/s. 2. Less than 50% stenosis=ICA PSV < 125 cm/s: ratio < 2.0: ICA EDV<40 cm/s. 3. 50 to 69% stenosis=ICA PSV of 125 to 230 cm/s: ration 2.0 ? 4.0: ICA EDV 40-100 cm/s. 4. Greater than 70% stenosis to near occlusion= ICA PSV > 230 cm/s: ratio > 4.0: ICA EDV > 100 cm/s. 5. Near occlusion= ICA PSV velocities may be low or undetectable: variable ratio and ICA EDV. 6. Total occlusion=unable to detect flow.
[2021-08-07] MEDS: AZITHROMYCIN 500 MG TAB PO SCH (21:45)
[2021-08-08] MEDS: SODIUM CHLORIDE 0.9% 1,000 ML IV SCH ×3 (02:05→20:53)
[2021-08-08] MEDS: LEVOTHYROXINE 50 MCG TAB PO SCH (05:52)
[2021-08-08] MEDS: DULoxetine HCL 30 MG CAPSULE.DR PO SCH (08:01)
[2021-08-08] MEDS: MELOXICAM 7.5 MG TAB PO SCH ×2 (08:01→20:53)
[2021-08-08] MEDS: CHOLECALCIFEROL 25 MCG (1000 IU) TABLET PO SCH (08:01)
[2021-08-08] MEDS: ATORVASTATIN 10 MG TAB PO SCH (08:02)
[2021-08-08] MEDS: DIVALPROEX 500 MG TABLET.DR PO SCH ×2 (08:02→20:53)
[2021-08-08] MEDS: ALPRAZolam 0.25 MG TAB PO PRN (10:20)
--- NOTE | 2021-08-08 10:22 | CA ---
Transthoracic Echo Report Name: uArora Landa Age: 76 Gender: F : 1945 Exam Date: 08/08/2021 08:51 Exam Location: [facility] Ht (in): 60 Wt (lb): 264 Ordering Physician: Lucas Plunkett MD Attending/Referring Phys: Partition Making Machine Operator Radha Zaidi RDCS Procedure CPT: Indications: stroke Cardiac Hx: No cardiac hx Technical Quality: Good Contrast 1: Total Dose (mL): Contrast 2: Total Dose (mL): MEASUREMENTS (Male / Female) Normal Values 2D ECHO LV Diastolic Diameter PLAX 1.9 cm 4.2 - 5.9 / 3.9 - 5.3 cm LV Systolic Diameter PLAX 1.7 cm IVS Diastolic Thickness 1.4 cm 0.6 - 1.0 / 0.6 - 0.9 cm LVPW Diastolic Thickness 1.7 cm 0.6 - 1.0 / 0.6 - 0.9 cm LV Relative Wall Thickness 1.6 RV Internal Dim ED PLAX 1.8 cm M-MODE Aortic Root Diameter MM 3.3 cm LA Systolic Diameter MM 3.3 cm LA Ao Ratio MM 1.0 MV E Point Septal Separation 0.5 cm AV Cusp Separation MM 2.0 cm DOPPLER AV Peak Velocity 83.5 cm/s AV Peak Gradient 2.8 mmHg MV Area PHT 4.6 cm??? MR Peak Velocity 131.0 cm/s MR Peak Gradient 6.9 mmHg Mitral E Point Velocity 46.9 cm/s Mitral A Point Velocity 66.2 cm/s Mitral E to A Ratio 0.7 MV Deceleration Time 165.5 ms TR Peak Velocity 136.2 cm/s TR Peak Gradient 7.4 mmHg Right Ventricular Systolic Press 12.4 mmHg FINDINGS Left Ventricle Moderately increased septal wall thickness. Severely increased posterior wall thickness. Left ventricular ejection fraction is estimated at 55-60_ %. Left ventricular cavity size normal. Right Ventricle The right ventricle is normal in size and function. Right ventricular hypertrophy. Right Atrium The right atrium is normal in size. Left Atrium The left atrium is normal in size. Mitral Valve Structurally normal mitral valve without significant stenosis or prolapse. There is a trace of mitral regurgitation. Aortic Valve Structurally normal aortic valve without significant sclerosis or stenosis. There is no aortic regurgitation. Tricuspid Valve Structurally normal tricuspid valve without significant stenosis. Pulmonary artery systolic pressure is normal. Mild tricuspid regurgitation. Pulmonic Valve Structurally normal pulmonic valve without significant stenosis. There is no pulmonic regurgitation. Pericardium Normal pericardium without effusion. Aorta Normal aortic root dimension. CONCLUSIONS #1. Concentric left ventricular hypertrophy. #2. Preserved LV function Previewed by: Dr. Marissa Holliday MD (Electronically Signed) Final Date: 08 August 2021 10:21
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
[2021-08-08] MEDS: AZITHROMYCIN 500 MG TAB PO SCH (20:53)
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
[2021-08-09] MEDS: LEVOTHYROXINE 50 MCG TAB PO SCH (05:16)
--- NOTE | 2021-08-09 07:19 | XR ---
EXAMINATION TYPE: XR chest 1V DATE OF EXAM: 08/09/2021 HISTORY: Shortness of breath. COMPARISON: 08/06/2021 TECHNIQUE: Single view of the chest is submitted. FINDINGS: Demonstrated are scattered senescent parenchymal change. There is no evidence for focal infiltrate. The heart is stable. Hilar and mediastinal structures are within normal limits. Degenerative changes are seen of the dorsal spine. IMPRESSION: 1. Chronic changes without evidence for acute pulmonary disease.
[2021-08-09] MEDS: DULoxetine HCL 30 MG CAPSULE.DR PO SCH (07:32)
[2021-08-09] MEDS: DIVALPROEX 500 MG TABLET.DR PO SCH ×2 (07:32→21:11)
[2021-08-09] MEDS: HEPARIN SODIUM,PORCINE/PF 5,000 UNIT/0.5 ML SYRINGE SQ SCH ×2 (07:32→21:11)
[2021-08-09] MEDS: CHOLECALCIFEROL 25 MCG (1000 IU) TABLET PO SCH (07:32)
[2021-08-09] MEDS: AZITHROMYCIN 500 MG TAB PO SCH (07:32)
[2021-08-09] MEDS: ATORVASTATIN 10 MG TAB PO SCH (07:32)
[2021-08-09] MEDS: amLODIPine 5 MG TAB PO SCH (08:00)
[2021-08-09] MEDS: FAMOTIDINE 20 MG/2 ML VIAL IV SCH ×2 (08:00→21:11)
[2021-08-09] MEDS: ALPRAZolam 0.25 MG TAB PO PRN (08:04)
[2021-08-09 09:25] LABS: Basophils # (A) 0.08 X 10*3/uL (0.00-0.10); Eosinophils % (A) 2.5 %; HCT 41.2 % (37.2-46.3); HGB 13.4 g/dL (12.0-15.0); Immature Grans, Automated 0.5 %; Lymphocytes # (A) 1.63 X 10*3/uL (0.90-5.00); Lymphocytes % (A) 20.1 %; MCH 31.1 pg (27.0-32.0); MCHC 32.5 g/dL (32.0-37.0); MCV 95.6 fL (80.0-97.0); Mean Platelet Volume 12.8 fL (9.5-12.2); Monocytes # (A) 0.59 X 10*3/uL (0.20-1.00); Monocytes % (A) 7.3 %; NRBC Per 100 WBC 0 /100 WBCS (0.0-0.0); Neutrophils # (A) 5.56 X 10*3/uL (1.80-7.70); Neutrophils % (A) 68.6 %; Platelet Count 176 X 10*3/uL (140-440); RBC 4.31 X 10*6/uL (4.10-5.20); RDW 12.6 % (11.5-14.5)
[2021-08-09 09:41] LABS: African American GFR (CKD) 97.5 (60.0-200.0); BUN/Creat Ratio 14.57 Ratio (12.00-20.00); Blood Urea Nitrogen 10.2 mg/dL (9.0-27.0); Calcium 9.1 mg/dL (8.7-10.3); Carbon Dioxide 23.3 mmol/L (20.0-27.5); Chloride 107 mmol/L (96-109); Glucose 102 mg/dL (70-110); Magnesium 2.2 mg/dL (1.5-2.4); Non-African American GFR(CKD) 84.2 (60.0-200.0); Potassium 3.6 mmol/L (3.5-5.5); Sodium 143 mmol/L (135-145)
[2021-08-09 10:33] LABS: C Reactive Protein <0.30 mg/dL (0.00-0.80)
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
--- NOTE | 2021-08-10 00:02 | P.CONS ---
History of Present Illness - Reason for Consult Consult date: 08/09/21 - History of Present Illness Patient is a 76-year-old female presented to the hospital 3 days ago on 08/06/2021 under petition for evaluation patient was found in local bank apparently noncommunicative and very anxious, patient on presentation to the hospital was afebrile and no fever have been recorded subsequently patient did have an elevated white of 14.5 however the ointment has subsequent normalized kidney function has been normal liver enzymes are normal urine was negative lozada PCR was negative as well as influenza PCR urine testing was negative as well as serum alcohol level level less than 10 patient did have a [address] of the brain that was negative for any bleed chest x-ray with chronic interstitial lung disease otherwise consider sedation pneumonitis or bronchitis chest x-ray repeated this morning chronic changes without acute cardiopulmonary process MRI of the brain age-related atrophic and chronic small vessel ischemic changes no acute abnormality patient did have blood culture drawn came back positive with bacillus patient that has prompted this infectious disease consultation patient currently do not have any open wound joint swelling, the patient is currently feeling better patient know that she is in the hospital denies any headache no chest pain no shortness with occasional cough no abdominal pain or diarrhea Past Medical History Past Medical History: Unable to Obtain, Hyperlipidemia, Thyroid Disorder Additional Past Medical History / Comment(s): patient unable to give information, caregiver had very limited medical information on pt. Caregiver/SW states patient lives alone, her years ago and that she takes the bus everywhere. She states she may have early dementia and does appear to be paranoid at times. History of Any Multi-Drug Resistant Organisms: None Reported, Unobtainable Past Surgical History: No Surgical Hx Reported, Unable to Obtain Past Anesthesia/Blood Transfusion Reactions: Unable to Obtain Past Psychological History: Anxiety, Depression Smoking Status: Never smoker Past Alcohol Use History: None Reported, Unable to Obtain Past Drug Use History: None Reported, Unable to Obtain Medications and Allergies Home Medications Medication Instructions Recorded Confirmed Type busPIRone HCl [Buspar] 5 mg PO DAILY 07/10/16 08/06/21 History Levothyroxine Sodium [Synthroid] 50 mcg PO DAILY 10/06/18 08/06/21 History Lovastatin [Mevacor] 60 mg PO DAILY 10/06/18 08/06/21 History Cyclobenzaprine [Flexeril] 5 mg PO HS PRN 08/06/21 08/06/21 History Meloxicam [Mobic] 7.5 mg PO BID 08/06/21 08/06/21 History Allergies Allergy/AdvReac Type Severity Reaction Status Date / Time No Known Allergies Allergy Verified 08/06/21 14:14 Physical Exam Vitals: Vital Signs Temp Pulse Pulse Resp BP Pulse Ox 08/09/21 14:57 97.5 F L 82 18 154/89 99 08/09/21 11:42 128/74 08/09/21 07:19 98.0 F 58 L 182/99 97 08/09/21 01:59 97.9 F 71 16 173/99 93 L 08/08/21 20:26 97.6 F 55 L 16 179/89 97 Intake and Output 08/09/21 08/09/21 08/09/21 06:59 14:59 22:59 Intake Total 1700 Balance 1700 Intake: Intake, IV Titration 1200 Amount Sodium Chloride 0.9% 1, 1200 000 ml @ 100 mls/hr IV . Q10H [facility] Rx#:[id number] Oral 500 Other: # Voids 5 Results CBC & Chem 7: 08/09/21 05:01 08/09/21 05:01 Labs: Abnormal Lab Results - Last 24 Hours (Table) 08/09/21 Range/Units 05:01 MPV 12.8 H (9.5-12.2) fL Assessment and Plan Plan: 1patient with a positive blood culture with bacillus species likely contaminant in this patient do not have any clinical disease to go along with patient did not have any fever mild elevated white count on admission which has subsequent normalized. 2blood culture has been repeated to document clearance of bacteremia. 3patient did have some respiratory symptoms procalcitonin mild elevated und erlying pneumonia not entirely excluded, to continue with Rocephin and Zithromax we will follow on clinical condition and cultures to further adjust medication if needed Thank you for this consultation will follow this patient along with you Time with Patient: Greater than 30
[2021-08-10] MEDS: LEVOTHYROXINE 50 MCG TAB PO SCH (06:05)
[2021-08-10] MEDS: CHOLECALCIFEROL 25 MCG (1000 IU) TABLET PO SCH (08:13)
[2021-08-10] MEDS: AZITHROMYCIN 500 MG TAB PO SCH (08:13)
[2021-08-10] MEDS: amLODIPine 5 MG TAB PO SCH (08:13)
[2021-08-10] MEDS: ATORVASTATIN 10 MG TAB PO SCH (08:13)
[2021-08-10] MEDS: HEPARIN SODIUM,PORCINE/PF 5,000 UNIT/0.5 ML SYRINGE SQ SCH ×2 (08:14→21:19)
[2021-08-10] MEDS: FAMOTIDINE 20 MG/2 ML VIAL IV SCH ×2 (08:14→21:19)
[2021-08-10] MEDS: DIVALPROEX 500 MG TABLET.DR PO SCH ×2 (08:14→21:19)
[2021-08-10] MEDS: DULoxetine HCL 30 MG CAPSULE.DR PO SCH (08:14)
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
--- NOTE | 2021-08-10 14:55 | EEG ---
ELECTROENCEPHALOGRAM REPORT DATE OF SERVICE: 08/10/2021. This is a 76-year-old female who was brought for confusion. Patient was noncommunicative and very anxious. The CT head showed brain volume loss, changes and chronic infarct. The patient currently takes Xanax, Norvasc, Lipitor, Zithromax, Depakote, Cymbalta . EEG FINDINGS: This is a 21 channel digital EEG recorded with video competent, utilizing 10/20 international system with referential and bipolar montages. Background consists of a well developed and regulated, moderate voltage activity in 9-10 hertz alpha. Background is posterior dominant and reactive to eye opening and closing. There was focal slowing in the left frontal region seen throughout the study, which could be due to technical related, although may be related to underlying focal neuronal dysfunction. The photic driving response was not clearly seen. Different stages of sleep were not seen. No focal or generalized epileptiform activity was seen. IMPRESSION: This is a borderline EEG due to presence of some focal slowing over the left frontal region. This could be artifactual, although focal slowing may suggest underlying cortical neural dysfunction. Consider prolonged EEG for better evaluation. No obvious epileptiform activity was seen. MMODL / IJN: [id number] / MTDLiv
[2021-08-11] MEDS: LEVOTHYROXINE 50 MCG TAB PO SCH (06:15)
--- NOTE | 2021-08-11 07:11 | P.PN ---
Subjective Progress Note Date: 08/10/21 Principal diagnosis: Positive blood cultures Patient is a 76 year female presenting to the hospital with some mental status changes in this patient did have a positive blood culture, she did have a mild respiratory symptoms and concern for possible pneumonia. On today's evaluation that is 08/10/2021, the patient denies having any fever or chills patient is currently breathing comfortably patient denies having any chest pain shortness with occasional cough no abdominal pain no diarrhea Objective - Vital Signs Vital signs: Vital Signs Temp 98.8 F 08/10/21 14:00 Pulse 73 08/10/21 14:00 Resp 16 08/10/21 14:00 BP 101/63 08/10/21 14:00 Pulse Ox 98 08/10/21 14:00 FiO2 Intake & Output 08/09/21 08/10/21 08/10/21 18:59 06:59 18:59 Other: Voiding Method Toilet Toilet # Voids 3 3 - Exam GENERAL DESCRIPTION: An elderly female lying in bed in no distress RESPIRATORY SYSTEM: Unlabored breathing , decreased breath sounds at bases HEART: S1 S2 regular rate and rhythm , ABDOMEN: Soft , no tenderness EXTREMITIES: No edema feet - Labs CBC & Chem 7: 08/09/21 05:01 08/09/21 05:01 Labs: Microbiology - Last 24 Hours (Table) 08/09/21 05:01 Blood Culture - Preliminary Blood No Growth after 24 hours Assessment and Plan (1) Pneumonia Current Visit: Yes Status: Acute Code(s): J18.9 - PNEUMONIA, UNSPECIFIED ORGANISM SNOMED Code(s): 593844693 Plan: 1patient with a positive blood culture with bacillus species likely contaminant in this patient do not have any clinical disease to go along with patient did not have any fever mild elevated white count on admission which has subsequent normalized. 2blood culture has been repeated which are so far pending 3patient did have some respiratory symptoms procalcitonin mild elevated underlying pneumonia not entirely excluded, to continue with Rocephin and Zithromax Time with Patient: Less than 30
[2021-08-11] MEDS: FAMOTIDINE 20 MG/2 ML VIAL IV SCH ×2 (08:59→21:46)
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
[2021-08-11] MEDS: amLODIPine 5 MG TAB PO SCH (13:13)
[2021-08-11] MEDS: HEPARIN SODIUM,PORCINE/PF 5,000 UNIT/0.5 ML SYRINGE SQ SCH ×2 (13:14→21:46)
[2021-08-11] MEDS: DULoxetine HCL 30 MG CAPSULE.DR PO SCH (13:14)
[2021-08-11] MEDS: ATORVASTATIN 10 MG TAB PO SCH (13:14)
[2021-08-11] MEDS: CHOLECALCIFEROL 25 MCG (1000 IU) TABLET PO SCH (13:14)
[2021-08-11] MEDS: DIVALPROEX 500 MG TABLET.DR PO SCH ×2 (13:14→21:46)
[2021-08-11] MEDS: AZITHROMYCIN 500 MG TAB PO SCH (13:14)
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
[2021-08-12] MEDS: FAMOTIDINE 20 MG/2 ML VIAL IV SCH (08:07)
[2021-08-12] MEDS: HEPARIN SODIUM,PORCINE/PF 5,000 UNIT/0.5 ML SYRINGE SQ SCH (08:07)
[2021-08-12] MEDS: DIVALPROEX 500 MG TABLET.DR PO SCH (08:07)
[2021-08-12] MEDS: LEVOTHYROXINE 50 MCG TAB PO SCH (08:07)
[2021-08-12] MEDS: ATORVASTATIN 10 MG TAB PO SCH (08:07)
[2021-08-12] MEDS: CHOLECALCIFEROL 25 MCG (1000 IU) TABLET PO SCH (08:08)
[2021-08-12] MEDS: DULoxetine HCL 30 MG CAPSULE.DR PO SCH (08:08)
[2021-08-12] MEDS: amLODIPine 5 MG TAB PO SCH (08:08)
[2021-08-12 09:50] VITALS: RESP 16
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
[2021-08-12 14:27] VITALS: BMI 51.6
[2021-08-12 16:57] VITALS: BP 131/78; PULSE 59; TEMP 97.5
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
== END 2021-08-12 17:02 | disposition home health service (06) | DRG 193 ==
LOC: EC 11:30 → 4SSUR 18:39
PROVIDERS: ADMIT Family Medicine; ATTEND Family Medicine
DX: J18.9 Pneumonia, unspecified organism (principal); G92.9 Unspecified toxic encephalopathy; I63.9 Cerebral infarction, unspecified; G40.89 Other seizures; I69.398 Other sequelae of cerebral infarction; G93.89 Other specified disorders of brain; E03.9 Hypothyroidism, unspecified; E78.5 Hyperlipidemia, unspecified; E86.0 Dehydration; F03.90 Unspecified dementia, unspecified severity, without behavioral disturbance, psychotic disturbance, mood disturbance, and anxiety; F32.A Depression, unspecified; F41.9 Anxiety disorder, unspecified; Z79.1 Long term (current) use of non-steroidal anti-inflammatories (NSAID); Z79.890 Hormone replacement therapy; Z79.899 Other long term (current) drug therapy; Z20.822 Contact with and (suspected) exposure to COVID-19; Z60.2 Problems related to living alone
CPT/HCPCS: 36415; 70450; 70553; 71045; 71046; 74018; 80048; 80053; 80306; 80320; 81001; 82140; 82550; 82607; 82746; 83690; 83735; 84145; 84439; 84443; 85025; 86140; 87040; 87502; 87635; 93306; 93880; 94760; 95713; 95816; 96365; 96366; 96372; 96375; 96376; 99285

== ENCOUNTER 2022-08-18 12:47 | Inpatient (IN) | payer MEDICARE ==
[2022-08-18 13:04] LABS: Glucose,Whole Blood 162 mg/dL (70-110)
[2022-08-18] MEDS ORDERED: SODIUM CHLORIDE 0.9% 500 ML 500 ML IV ONE (13:12)
--- NOTE | 2022-08-18 13:17 | ED ---
General Adult HPI - General Chief complaint: Psychiatric Symptoms Stated complaint: AMS Time Seen by Provider: 08/18/22 12:47 Source: patient, EMS, RN notes reviewed, old records reviewed Mode of arrival: EMS - History of Present Illness Initial comments: This is a person who was altered and is unable to give any history and is unable to answer any questions. Patient was on a bus and according to the manager business operations per EMS the patient was normal talking on the way to her stop when he picked her back up she is confused making sense and not talking to anyone and unable to answer any questions. We have no further history at this time and we don't even have her name at this time to look up past medical history - Related Data Home Medications Medication Instructions Recorded Confirmed Calcium Carbonate [Calcium] 600 mg PO DIRECTED 08/18/22 08/18/22 Cholecalciferol [Vitamin D3 (25 50 mcg PO DIRECTED 08/18/22 08/18/22 Mcg = 1000 Iu)] Previous Rx's Medication Instructions Recorded Aspirin EC [Ecotrin Low Dose] 81 mg PO DAILY #30 tab 08/20/22 Levothyroxine Sodium [Synthroid] 25 mcg PO DAILY@0630 #30 tab 08/20/22 Lovastatin [Mevacor] 40 mg PO HS #0 08/20/22 busPIRone HCl [Buspar] 5 mg PO BID #60 tab 08/20/22 Allergies Allergy/AdvReac Type Severity Reaction Status Date / Time No Known Allergies Allergy Verified 08/18/22 17:04 Review of Systems ROS Statement: Those systems with pertinent positive or pertinent negative responses have been documented in the HPI. ROS Other: All systems not noted in ROS Statement are negative. General Exam - General Exam Comments Initial Comments: GENERAL: Patient is well-developed and well-nourished. Patient is nontoxic and well- hydrated and appears to be in distress but she is unable to speak to us to tell us what is going on. She is moaning and groaning and seems like sometimes she has vomiting up in her mouth but then will open her mouth to let us suctioning and she swallows everything. ENT: Neck is soft and supple. No significant lymphadenopathy is noted. Oropharynx is clear. Moist mucous membranes. Neck has full range of motion without eliciting any pain. EYES: The sclera were anicteric and conjunctiva were pink and moist. Extraocular movements were intact and pupils were equal round and reactive to light. Eyelids were unremarkable. PULMONARY: Unlabored respirations. Good breath sounds bilaterally. No audible rales rhonchi or wheezing was noted. CARDIOVASCULAR: There is a regular rate and rhythm without any murmurs gallops or rubs. ABDOMEN: Soft and nontender with normal bowel sounds. SKIN: Skin is clear with no lesions or rashes and otherwise unremarkable. NEUROLOGIC: Patient is alert and oriented x3. Cranial nerves II through XII are grossly intact. Motor and sensory are also intact. Normal speech, volume and content. Symmetrical smile. MUSCULOSKELETAL: Normal extremities with adequate strength and full range of motion. No lower extremity swelling or edema. No calf tenderness. LYMPHATICS: No significant lymphadenopathy is noted PSYCHIATRIC: Normal psychiatric evaluation. Course Vital Signs 08/18/22 08/18/22 08/19/22 12:59 13:38 03:44 Temperature 97.9 F 98.9 F Pulse Rate 56 L 60 63 Respiratory 20 18 20 Rate Blood Pressure 196/104 120/72 O2 Sat by Pulse 98 98 Oximetry 08/19/22 08/19/22 07:30 07:37 Temperature 99 F Pulse Rate 89 89 Respiratory 20 20 Rate Blood Pressure 135/66 110/60 O2 Sat by Pulse 98 98 Oximetry Medical Decision Making - Medical Decision Making EKG was interpreted by myself. EKG shows a sinus rhythm with an occasional PAC at a rate of 63 bpm ND interval is on a 45 QRS is 86 QT interval 412 QTC is 420. Patient's EKG shows no ST segment elevation or depression. Was pt. sent in by a medical professional or institution (, PA, SKIN TOGGLER, urgent care, hospital, or jail...) When possible be specific @ -No Did you speak to anyone other than the patient for history (EMS, parent, family, police, friend...)? What history was obtained from this source @ -Skin: History since the patient was not talking to us Did you review nursing and triage notes (agree or disagree)? Why? @ -I reviewed and agree with nursing and triage notes Were old charts reviewed (outside hosp., previous admission, EMS record, old EKG, old radiological studies, urgent care reports/EKG's, jail records)? Report findings @ -I reviewed prior charts and lab work once I found the patient's name Differential Diagnosis (chest pain, altered mental status, abdominal pain women, abdominal pain men, vaginal bleeding, weakness, fever, dyspnea, syncope, headache, dizziness, GI bleed, back pain, seizure, CVA, palpatations, mental health, musculoskeletal)? @ -Differential Altered Mental Status: Hypoglycemia, DKA, hypercapnia, ETOH, overdose, CO poisoning, trauma, myxedema coma, HTN encephalopathy, infection, encephalitis, psychosis, intercranial he morrhage, hepatic encephalopathy, meningitis, CVA, this is not meant to be an all-inclusive list EKG interpreted by me (3pts min.). @ -As above X-rays interpreted by me (1pt min.). @ -Chest x-ray showed no acute abnormality CT interpreted by me (1pt min.). @ -CT of the brain showed no acute abnormality U/S interpreted by me (1pt. min.). @ -None done What testing was considered but not performed or refused? (CT, X-rays, U/S, la bs)? Why? @ -None What meds were considered but not given or refused? Why? @ -None Did you discuss the management of the patient with other professionals (professionals i.e. , PA, SKIN TOGGLER, lab, RT, psych nurse, social media assistant, swim coach, teacher, amphibious operations officer, watch case polisher)? Give summary @ -I spoke with some positions he agreed to admit the patient Was smoking cessation discussed for >3mins.? @ -No Was critical care preformed (if so, how long)? @ -No Were there social determinants of health that impacted care today? How? (Homelessness, low income, unemployed, alcoholism, drug addiction, transportation, low edu. Level, literacy, decrease access to med. care, care home, rehab)? @ -No Was there de-escalation of care discussed even if they declined (Discuss DNR or withdrawal of care, Hospice)? DNR status @ -No What co-morbidities impacted this encounter? (DM, HTN, Smoking, COPD, CAD, Cancer, CVA, ARF, Chemo, Hep., AIDS, mental health diagnosis, sleep apnea, morbid obesity)? @ -None Was patient admitted / discharged? Hospital course, mention meds given and route, prescriptions, significant lab abnormalities, going to OR and other pertinent info. @ -Patient was worked up with lab work and radiological studies and no reason was found for her altered mental status. I am positions he agreed to admit the patient Undiagnosed new problem with uncertain prognosis? @ -No Drug Therapy requiring intensive monitoring for toxicity (Heparin, Nitro, Insulin, Cardizem)? @ -No Were any procedures done? @ -No Diagnosis/symptom? @ -Altered mental status Acute, or Chronic, or Acute on Chronic? @ -Acute Uncomplicated (without systemic symptoms) or Complicated (systemic symptoms)? @ -Complicated Sae e effects of treatment? @ -No Exacerbation, Progression, or Severe Exacerbation? @ -No Poses a threat to life or bodily function? How? (Chest pain, [place], [place], pneumonia, PE, COPD, DKA, ARF, appy, cholecystitis, CVA, Diverticulitis, Homicidal, Suicidal, threat to staff... and all critical care pts) @ -No - Lab Data Result diagrams: 08/20/22 07:51 08/20/22 07:51 Lab Results 08/18/22 08/18/22 08/18/22 Range/Units 13:02 13:15 13:15 WBC 13.1 H (3.8-10.6) k/uL RBC 4.95 (3.80-5.40) m/uL Hgb 16.1 H (11.4-16.0) gm/dL Hct 46.9 H (34.0-46.0) % MCV 94.8 (80.0-100.0) fL MCH 32.5 (25.0-35.0) pg MCHC 34.3 (31.0-37.0) g/dL RDW 12.9 (11.5-15.5) % Plt Count 198 (150-450) k/uL MPV 10.4 Neutrophils % 81 % Lymphocytes % 12 % Monocytes % 4 % Eosinophils % 1 % Basophils % 0 % Neutrophils # 10.6 H (1.3-7.7) k/uL Lymphocytes # 1.6 (1.0-4.8) k/uL Monocytes # 0.6 (0-1.0) k/uL Eosinophils # 0.1 (0-0.7) k/uL Basophils # 0.0 (0-0.2) k/uL PT 10.0 (9.0-12.0) sec INR 0.9 (<1.2) APTT 20.2 L (22.0-30.0) sec Sodium (137-145) mmol/L Potassium (3.5-5.1) mmol/L Chloride (98-107) mmol/L Carbon Dioxide (22-30) mmol/L Anion Gap mmol/L BUN (7-17) mg/dL Creatinine (0.52-1.04) mg/dL Est GFR (CKD-EPI)AfAm (>60 ml/min/1.73 sqM) Est GFR (CKD-EPI)NonAf (>60 ml/min/1.73 sqM) Glucose (74-99) mg/dL POC Glucose (mg/dL) 162 H (70-110) mg/dL POC Glu Mat Repairer ID Rufino Interiano Calcium (8.4-10.2) mg/dL Total Bilirubin (0.2-1.3) mg/dL AST (14-36) U/L ALT (4-34) U/L Alkaline Phosphatase (38-126) U/L Ammonia (<30) umol/L Troponin I (0.000-0.034) ng/mL Total Protein (6.3-8.2) g/dL Albumin (3.5-5.0) g/dL Vitamin B12 (200.0-944.0) pg/mL Folate (4.40-31.00) ng/mL Urine Color Urine Appearance (Clear) Urine pH (5.0-8.0) Ur Specific [place] (1.001-1.035) Urine Protein (Negative) Urine Glucose (UA) (Negative) Urine Ketones (Negative) Urine Blood (Negative) Urine Nitrite (Negative) Urine Bilirubin (Negative) Urine Urobilinogen (<2.0) mg/dL Ur Leukocyte Esterase (Negative) Urine RBC (0-5) /hpf Urine WBC (0-5) /hpf Ur Squamous Epith Cells (0-4) /hpf Amorphous Sediment (None) /hpf Urine Mucus (None) /hpf Urine Opiates Screen (NotDetected) Ur Oxycodone Screen (NotDetected) Urine Methadone Screen (NotDetected) Ur Propoxyphene Screen (NotDetected) Ur Barbiturates Screen (NotDetected) U Tricyclic Antidepress (NotDetected) Ur Phencyclidine Scrn (NotDetected) Ur Amphetamines Screen (NotDetected) U Methamphetamines Scrn (NotDetected) U Benzodiazepines Scrn (NotDetected) Urine Cocaine Screen (NotDetected) U Marijuana (THC) Screen (NotDetected) 08/18/22 08/18/22 08/18/22 Range/Units 13:15 13:15 13:15 WBC (3.8-10.6) k/uL RBC (3.80-5.40) m/uL Hgb (11.4-16.0) gm/dL Hct (34.0-46.0) % MCV (80.0-100.0) fL MCH (25.0-35.0) pg MCHC (31.0-37.0) g/dL RDW (11.5-15.5) % Plt Count (150-450) k/uL MPV Neutrophils % % Lymphocytes % % Monocytes % % Eosinophils % % Basophils % % Neutrophils # (1.3-7.7) k/uL Lymphocytes # (1.0-4.8) k/uL Monocytes # (0-1.0) k/uL Eosinophils # (0-0.7) k/uL Basophils # (0-0.2) k/uL PT (9.0-12.0) sec INR (<1.2) APTT (22.0-30.0) sec Sodium 137 (137-145) mmol/L Potassium 4.3 (3.5-5.1) mmol/L Chloride 106 (98-107) mmol/L Carbon Dioxide 23 (22-30) mmol/L Anion Gap 8 mmol/L BUN 31 H (7-17) mg/dL Creatinine 0.83 (0.52-1.04) mg/dL Est GFR (CKD-EPI)AfAm 58 (>60 ml/min/1.73 sqM) Est GFR (CKD-EPI)NonAf 50 (>60 ml/min/1.73 sqM) Glucose 156 H (74-99) mg/dL POC Glucose (mg/dL) (70-110) mg/dL POC Glu Mat Repairer ID Calcium 10.3 H (8.4-10.2) mg/dL Total Bilirubin 0.7 (0.2-1.3) mg/dL AST 27 (14-36) U/L ALT 20 (4-34) U/L Alkaline Phosphatase 87 (38-126) U/L Ammonia (<30) umol/L Troponin I <0.012 (0.000-0.034) ng/mL Total Protein 6.8 (6.3-8.2) g/dL Albumin 4.4 (3.5-5.0) g/dL Vitamin B12 (200.0-944.0) pg/mL Folate (4.40-31.00) ng/mL Urine Color Urine Appearance (Clear) Urine pH (5.0-8.0) Ur Specific [place] (1.001-1.035) Urine Protein (Negative) Urine Glucose (UA) (Negative) Urine Ketones (Negative) Urine Blood (Negative) Urine Nitrite (Negative) Urine Bilirubin (Negative) Urine Urobilinogen (<2.0) mg/dL Ur Leukocyte Esterase (Negative) Urine RBC (0-5) /hpf Urine WBC (0-5) /hpf Ur Squamous Epith Cells (0-4) /hpf Amorphous Sediment (None) /hpf Urine Mucus (None) /hpf Urine Opiates Screen Not Detected (NotDetected) Ur Oxycodone Screen Not Detected (NotDetected) Urine Methadone Screen Not Detected (NotDetected) Ur Propoxyphene Screen Not Detected (NotDetected) Ur Barbiturates Screen Not Detected (NotDetected) U Tricyclic Antidepress Not Detected (NotDetected) Ur Phencyclidine Scrn Not Detected (NotDetected) Ur Amphetamines Screen Not Detected (NotDetected) U Methamphetamines Scrn Not Detected (NotDetected) U Benzodiazepines Scrn Not Detected (NotDetected) Urine Cocaine Screen Not Detected (NotDetected) U Marijuana (THC) Screen Not Detected (NotDetected) 08/18/22 08/18/22 08/18/22 Range/Units 13:15 13:15 13:15 WBC (3.8-10.6) k/uL RBC (3.80-5.40) m/uL Hgb (11.4-16.0) gm/dL Hct (34.0-46.0) % MCV (80.0-100.0) fL MCH (25.0-35.0) pg MCHC (31.0-37.0) g/dL RDW (11.5-15.5) % Plt Count (150-450) k/uL MPV Neutrophils % % Lymphocytes % % Monocytes % % Eosinophils % % Basophils % % Neutrophils # (1.3-7.7) k/uL Lymphocytes # (1.0-4.8) k/uL Monocytes # (0-1.0) k/uL Eosinophils # (0-0.7) k/uL Basophils # (0-0.2) k/uL PT (9.0-12.0) sec INR (<1.2) APTT (22.0-30.0) sec Sodium (137-145) mmol/L Potassium (3.5-5.1) mmol/L Chloride (98-107) mmol/L Carbon Dioxide (22-30) mmol/L Anion Gap mmol/L BUN (7-17) mg/dL Creatinine (0.52-1.04) mg/dL Est GFR (CKD-EPI)AfAm (>60 ml/min/1.73 sqM) Est GFR (CKD-EPI)NonAf (>60 ml/min/1.73 sqM) Glucose (74-99) mg/dL POC Glucose (mg/dL) (70-110) mg/dL POC Glu Mat Repairer ID Calcium (8.4-10.2) mg/dL Total Bilirubin (0.2-1.3) mg/dL AST (14-36) U/L ALT (4-34) U/L Alkaline Phosphatase (38-126) U/L Ammonia <9 (<30) umol/L Troponin I (0.000-0.034) ng/mL Total Protein (6.3-8.2) g/dL Albumin (3.5-5.0) g/dL Vitamin B12 1252.0 H (200.0-944.0) pg/mL Folate (4.40-31.00) ng/mL Urine Color Yellow Urine Appearance Clear (Clear) Urine pH 7.0 (5.0-8.0) Ur Specific [place] 1.017 (1.001-1.035) Urine Protein Trace H (Negative) Urine Glucose (UA) Negative (Negative) Urine Ketones 1+ H (Negative) Urine Blood Negative (Negative) Urine Nitrite Negative (Negative) Urine Bilirubin Negative (Negative) Urine Urobilinogen <2.0 (<2.0) mg/dL Ur Leukocyte Esterase Small H (Negative) Urine RBC 3 (0-5) /hpf Urine WBC 5 (0-5) /hpf Ur Squamous Epith Cells <1 (0-4) /hpf Amorphous Sediment Few H (None) /hpf Urine Mucus Occasional H (None) /hpf Urine Opiates Screen (NotDetected) Ur Oxycodone Screen (NotDetected) Urine Methadone Screen (NotDetected) Ur Propoxyphene Screen (NotDetected) Ur Barbiturates Screen (NotDetected) U Tricyclic Antidepress (NotDetected) Ur Phencyclidine Scrn (NotDetected) Ur Amphetamines Screen (NotDetected) U Methamphetamines Scrn (NotDetected) U Benzodiazepines Scrn (NotDetected) Urine Cocaine Screen (NotDetected) U Marijuana (THC) Screen (NotDetected) 08/18/22 Range/Units 13:15 WBC (3.8-10.6) k/uL RBC (3.80-5.40) m/uL Hgb (11.4-16.0) gm/dL Hct (34.0-46.0) % MCV (80.0-100.0) fL MCH (25.0-35.0) pg MCHC (31.0-37.0) g/dL RDW (11.5-15.5) % Plt Count (150-450) k/uL MPV Neutrophils % % Lymphocytes % % Monocytes % % Eosinophils % % Basophils % % Neutrophils # (1.3-7.7) k/uL Lymphocytes # (1.0-4.8) k/uL Monocytes # (0-1.0) k/uL Eosinophils # (0-0.7) k/uL Basophils # (0-0.2) k/uL PT (9.0-12.0) sec INR (<1.2) APTT (22.0-30.0) sec Sodium (137-145) mmol/L Potassium (3.5-5.1) mmol/L Chloride (98-107) mmol/L Carbon Dioxide (22-30) mmol/L Anion Gap mmol/L BUN (7-17) mg/dL Creatinine (0.52-1.04) mg/dL Est GFR (CKD-EPI)AfAm (>60 ml/min/1.73 sqM) Est GFR (CKD-EPI)NonAf (>60 ml/min/1.73 sqM) Glucose (74-99) mg/dL POC Glucose (mg/dL) (70-110) mg/dL POC Glu Mat Repairer ID Calcium (8.4-10.2) mg/dL Total Bilirubin (0.2-1.3) mg/dL AST (14-36) U/L ALT (4-34) U/L Alkaline Phosphatase (38-126) U/L Ammonia (<30) umol/L Troponin I (0.000-0.034) ng/mL Total Protein (6.3-8.2) g/dL Albumin (3.5-5.0) g/dL Vitamin B12 (200.0-944.0) pg/mL Folate 21.20 (4.40-31.00) ng/mL Urine Color Urine Appearance (Clear) Urine pH (5.0-8.0) Ur Specific [place] (1.001-1.035) Urine Protein (Negative) Urine Glucose (UA) (Negative) Urine Ketones (Negative) Urine Blood (Negative) Urine Nitrite (Negative) Urine Bilirubin (Negative) Urine Urobilinogen (<2.0) mg/dL Ur Leukocyte Esterase (Negative) Urine RBC (0-5) /hpf Urine WBC (0-5) /hpf Ur Squamous Epith Cells (0-4) /hpf Amorphous Sediment (None) /hpf Urine Mucus (None) /hpf Urine Opiates Screen (NotDetected) Ur Oxycodone Screen (NotDetected) Urine Methadone Screen (NotDetected) Ur Propoxyphene Screen (NotDetected) Ur Barbiturates Screen (NotDetected) U Tricyclic Antidepress (NotDetected) Ur Phencyclidine Scrn (NotDetected) Ur Amphetamines Screen (NotDetected) U Methamphetamines Scrn (NotDetected) U Benzodiazepines Scrn (NotDetected) Urine Cocaine Screen (NotDetected) U Marijuana (THC) Screen (NotDetected) Disposition Clinical Impression: Altered mental status Disposition: ADMITTED IP TO THIS [facility] Condition: Stable
[2022-08-18 13:31] LABS: Basophils % (A) 0 %; Eosinophils # (A) 0.1 k/uL (0-0.7); Eosinophils % (A) 1 %; HCT 46.9 % (34.0-46.0); HGB 16.1 gm/dL (11.4-16.0); Lymphocytes # (A) 1.6 k/uL (1.0-4.8); Lymphocytes % (A) 12 %; MCH 32.5 pg (25.0-35.0); MCHC 34.3 g/dL (31.0-37.0); MCV 94.8 fL (80.0-100.0); Mean Platelet Volume 10.4; Monocytes # (A) 0.6 k/uL (0-1.0); Monocytes % (A) 4 %; Neutrophils # (A) 10.6 k/uL (1.3-7.7); Neutrophils % (A) 81 %; Platelet Count 198 k/uL (150-450); RBC 4.95 m/uL (3.80-5.40); RDW 12.9 % (11.5-15.5); WBC 13.1 k/uL (3.8-10.6)
--- NOTE | 2022-08-18 13:42 | CT ---
EXAMINATION TYPE: CT brain wo con CT DLP: 1099.4 mGycm, Automated exposure control for dose reduction was used. DATE OF EXAM: 08/18/2022 1:36 PM COMPARISON: None. CLINICAL INDICATION:Female, 89 years old with history of Altered mental status, ams TECHNIQUE: Brain: Axial CT images of the brain were obtained with coronal and sagittal reformats created and rev iewed. Contrast used: None. Oral contrast used: None. FINDINGS: Brain: Extra-axial spaces: No abnormal extra-axial fluid collections. 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 No acute intraparenchymal hemorrhage or mass effect. The remainder of the mckeon-white junctions are well differentiated. Cerebellum: Unremarkable. Mass effect: No evidence of midline shift. Intracranial vasculature: Atherosclerotic calcifications of the intracranial vessels. Soft tissues: Normal. Calvarium/osseous structures: No depressed skull fracture. Paranasal sinuses and mastoid air cells: Mild scattered paranasal sinus disease. Visualized orbits: Orbital contents are intact. IMPRESSION: 1. No acute intracranial process. 2. Remote right MCA territory injury.
[2022-08-18 13:44] LABS: ALT 20 U/L (4-34); AST 27 U/L (14-36); African American GFR (CKD) 58 (>60 ml/min/1.73 sqM); Albumin 4.4 g/dL (3.5-5.0); Alkaline Phosphatase 87 U/L (38-126); Anion Gap 8 mmol/L; Blood Urea Nitrogen 31 mg/dL (7-17); Calcium 10.3 mg/dL (8.4-10.2); Carbon Dioxide 23 mmol/L (22-30); Chloride 106 mmol/L (98-107); Glucose 156 mg/dL (74-99); Non-African American GFR(CKD) 50 (>60 ml/min/1.73 sqM); Potassium 4.3 mmol/L (3.5-5.1); Sodium 137 mmol/L (137-145); Total Bilirubin 0.7 mg/dL (0.2-1.3); Total Protein 6.8 g/dL (6.3-8.2)
[2022-08-18 13:50] LABS: Amphetamine Screen,Urine Not Detected (NotDetected); Barbiturate Screen,Urine Not Detected (NotDetected); Benzodiazepines Screen,Urine Not Detected (NotDetected); Cocaine Screen,Urine Not Detected (NotDetected); Methadone Screen, Urine Not Detected (NotDetected); Opiate Screen,Urine Not Detected (NotDetected); Oxycodone Screen, Urine Not Detected (NotDetected); Phencyclidine Screen,Urine Not Detected (NotDetected); Tricyclic Antidepressant,Urine Not Detected (NotDetected); Urn Cannabinoid Scrn Not Detected (NotDetected)
[2022-08-18 13:52] LABS: INR 0.9 (<1.2)
[2022-08-18 14:02] LABS: Amorphous Sediment,Urine Few /hpf; Appearance,Urine Clear (Clear); Bilirubin,Urine Negative (Negative); Blood,Urine Negative (Negative); Color,Urine Yellow; Glucose,Urine (UA) Negative (Negative); Ketones,Urine 1+ (Negative); Leukocyte Esterase,Urine Small (Negative); Mucus,Urine Occasional /hpf; Nitrite,Urine Negative (Negative); Protein,Urine Trace (Negative); RBC,Urine 3 /hpf (0-5); Specific Gravity,Urine 1.017 (1.001-1.035); Squamous Epithelial Cell,Urine <1 /hpf (0-4); Urobilinogen,Urine <2.0 mg/dL (<2.0); WBC,Urine 5 /hpf (0-5)
[2022-08-18 14:03] LABS: Partial Thromboplastin Time 20.2 sec (22.0-30.0)
--- NOTE | 2022-08-18 14:24 | XR ---
EXAMINATION TYPE: XR chest 2V DATE OF EXAM: 08/18/2022 HISTORY: Shortness of breath. COMPARISON: None. TECHNIQUE: 2 views of the chest is submitted. FINDINGS: Demonstrated are scattered senescent parenchymal change. There is no evidence for focal infiltrate. The heart is stable. Hilar and mediastinal structures are within normal limits. Degenerative changes are seen of the dorsal spine. IMPRESSION: 1. Chronic changes without evidence for acute pulmonary disease.
--- NOTE | 2022-08-18 16:27 | P.PN ---
Progress Note - Text Progress Note Date: 08/18/22 Patient initially presenting to the emergency department under Chelsie dose status. She presented with altered mentation of unclear origin. Per ED report patient presented via EMS after being found by business intelligence administrator nonverbal and visually distraught. Patient was brought to our facility and was initially found to be in hypertensive urgency with blood pressure 196/104, heart rate 56, respiratory rate of 20, and SpO2 of 98% on room air.. Police were called by RN and report being filed. Patient was found to have no bruises or noticeable injuries upon examination. Labs were completed and reviewed. CBC revealing WBC count 13.1 and hemoglobin 16.1. BMP revealing prerenal azotemia with BUN of 31 and glucose of 156. Troponin negative at less than 0.012. Urinalysis negative for infection. Urine drug screen completed negative. EKG completed showing normal sinus rhythm at 63 bpm with an occasional PAC and T-wave inversion in lateral lead aVL otherwise showing no significant T-wave or ST abnormalities upon personal review and interpretation. CT head completed negative for acute intercranial process showing a remote right MCA territory injury with encephalomalacia. Chest x-ray completed negative for acute cardiopulmonary process. [facility] physicians group was called for Inpatient admission. 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 Patient's name is Aurora Hernandez. Patient reportedly follows up outpatient with Dr. Street and has a previously known history of anxiety encephalopathy. Dr. Keene covers for Dr. Street for inpatient admissions, called and notified Dr. Keene and ED physician of admission to Dr. Keene. Consult was placed to both neurology and psychiatry and patient placed on fall precautions and neuro checks. Dr. Keene assuming care of patient and to complete H&P and further orders at this time. Abdias Ordonez NP rendered care for this patient independently, reviewed the findings and plan as documented in the note above. I did not physically speak with or examine the patient on this date.
[2022-08-18 21:24] LABS: Acetaminophen <10.0 ug/mL; Alcohol <10 mg/dL; Salicylate <1.0 mg/dL
[2022-08-18 22:32] LABS: T4, Free (Free Thyroxine) 1.35 ng/dL (0.78-2.19)
[2022-08-19] MEDS ORDERED: QUEtiapine 25 MG TAB PO PRN (14:11)
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
--- NOTE | 2022-08-19 14:27 | P.CN ---
Psychiatric Consult - . Consult date: 08/19/22 Consult:: 08/19/22 13:01 IDENTIFYING DATA: This patient is a 77-year-old female currently lives alone in a house, she is , she has no kids. REASON FOR REFERRAL: Psychiatry was consulted for altered mental status. HISTORY OF PRESENT ILLNESS: The patient presented to the hospital yesterday for altered mental status and apparently was a poor historian when she was brought in to the hospital. Patient apparently was found in a bus and was confused and taken to the hospital for changes in mental status and confusion. Patient had a computed tomography scan of her brain which showed remarkable MCA territory injury, no acute intracranial process. Patient but patient was noticed to have mildly elevated WBC count at 13.1, urinalysis did show small leukocyte esterase, urine drug seems negative. Patient was seen while eating her lunch and agreeable to seek a check writer salesperson. She initially is fairly pleasant and attempted to answer all questions. She was fairly hesitant in her speech difficulty with word finding at times. She did appear somewhat anxious at times during the interview however was trying to be helpful. She correctly stated her name date of and age, she knew that she was in [facility], she believed that today was "02/19/1922" however was corrected on this. She states that she was feeling confused on the bus and does not know where she was going. She claims that "it may have been going to the mall or [employer]". She claims that she does have a history of anxiety is taking buspirone 5 mg a day. She claims that it was helping her. She was adamant on not taking any other medications for her anxiety or depression. States that her sleep and appetite are fair at this time. At this time patient denies any suicidal or homical ideations, intent or plan. Patient denies any auditory, visual hallucinations and denies any paranoia or delusions. Patients admits to using no recreational drugs or cigarettes. PAST PSYCHIATRIC HISTORY: Patient has a a history of anxiety. Patient was previously on buspirone for anxiety. Patient denies any previous psychiatric hospitalizations. Patient denies any psychiatric outpatient follow-up. Patient denies any history of suicide attempts in the past. PAST MEDICAL HISTORY: As per medicine note ALLERGIES: as per EMR. CHEMICAL DEPENDENCY HISTORY: as per HPI. FAMILY PSYCHIATRIC/SUBSTANCE USE HISTORY: Claims that her mother suffered from depression and anxiety. SOCIAL HISTORY: Patient was born and raised in [place] [facility] claims that she completed high school. 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 She is , she has no kids, she lives alone in a house. MENTAL STATUS EXAM: General Appearance: Patient appears to be short in stature, short hair, stated age is alert, pleasant, and attempts to be cooperative. Patient appears to have fair hygiene and grooming wearing hospital gown with fair eye contact. Behavior: Patient is calmly lying in bed without any agitated behavior. Hesitant and appears anxious. Speech: Patient's speech is fluent. Hesitant speech. Mood/Affect: Patient reports their mood is "ok", affect is congruent and anxious Suicidality/Homicidality: Patient denies having any suicidal or homicidal id eation intent or plan. Perceptions: Patient denies any visual hallucinations and denies any auditory hallucinations Though content/process: There is no evidence of any delusional thought content a nd thought process is linear and goal-directed. Philo Memory and concentration: AOX2, believes that it is "02/19/1922", her concentration. Cannot spell "WORLD" backwards Judgment and insight: Chronically limited IMPRESSIONS: Delirium, unknown etiology probable underlying neurocognitive disorder Generalized anxiety disorder PLAN: -At this time patient DOES NOT meet criteria for inpatient psychiatric admission. -Delirium precautions recommended with patient including - avoiding use of narcotics and LEACH CELL OPERATOR sedatives, limit anticholinergic medications when possible, frequent re-orientation, minimize use of restraints, open window shades during the day and close them at night -Would recommend the following medication changes/additions: start buspar po 5 mg bid for anxiety, seroquel 25 mg qhs prn for insomnia/anxiety. Bobbin Loose End Finder attempted to offer other medications which could help control patients anxiety better including SSRIs or SNRIs however patient refused. -derrick worker to provide patient with outpatient mental health/psychiatry resources for appropriate follow up upon discharge -Communicated plan to patient's nurse -Psychiatry will sign off at this time -Please contact with any questions. 08/19/22 14:10 08/19/22 14:11
--- NOTE | 2022-08-19 14:48 | P.CNNES ---
History of Present Illness Consult date: 08/19/22 Requesting physician: Abdias Ordonez Reason for Consult: altered mental status History of Present Illness: This is a 77-year-old woman who presented with presented emergency department because of altered mental status. Patient initially presented to the emergency as that Chelsie conte. Patient does not recall what brought her to the hospital and does not recall what transpired that R year. History was obtained from medical record. It seems that the patient presented to ED via EMS after being found by bushwalking guide nonverbal and visually distraught. According to the nurse it is reported that initially she took the bus and was doing well but then when she had to take the bus back that when she was found confused. Patient does not recall the episode. She denies any history of stroke or seizures in the past. She says that she has underlying anxiety and depression. She is not on any antiplatelets or anticoagulation. She denies any tobacco or alcohol use or any illicit drug use. Denies history of fevers. Denies headache, focal weakness or numbness. Denies any difficulty getting her words out. She said she resides by herself. Patient is on for her anxiety depression. Some of the workup during this hospital visit consisted of: Temperature is a patient has been afebrile so far. Initial white blood cells 13.1 slightly neutrophilic. Initial loss serum glucose is 162. Otherwise rest of chemistry panel is unremarkable Ammonia is less than 9. TSH is a 0.176 Free T4 is 1.35. Urine drug screen is negative. Serum alcohol was less than 10, acetaminophen less than 10, salicylate less than 1.0. CT of the head is reported as no acute process. Remote right MCA territory injury. I personally reviewed the CT and I agree with the report. Review of Systems Review of system: The 12 point system was reviewed and apparent positive and negative per HPI. Medications and Allergies Home Medications Medication Instructions Recorded Confirmed Type Calcium Carbonate [Calcium] 600 mg PO DIRECTED 08/18/22 08/18/22 History Cholecalciferol [Vitamin D3 (25 50 mcg PO DIRECTED 08/18/22 08/18/22 History Mcg = 1000 Iu)] Levothyroxine Sodium [Synthroid] 50 mcg PO DIRECTED 08/18/22 08/18/22 History Lovastatin [Mevacor] 40 mg PO DIRECTED 08/18/22 08/18/22 History busPIRone HCL [Buspar] 7.5 mg PO DIRECTED 08/18/22 08/18/22 History Allergies Allergy/AdvReac Type Severity Reaction Status Date / Time No Known Allergies Allergy Verified 08/18/22 17:04 Physical Examination - Vital Signs Vital Signs: Vital Signs Temp Pulse Resp BP Pulse Ox 08/19/22 07:37 89 20 110/60 98 08/19/22 07:30 99 F 89 20 135/66 98 08/19/22 03:44 98.9 F 63 20 120/72 98 Intake and Output 08/18/22 08/19/22 08/19/22 22:59 06:59 14:59 Other: Voiding Method Toilet GENERAL: The patient is lying in bed and is not in acute distress. NEUROLOGICAL: Higher mental function: The patient is awake, alert, oriented to self, place and time. Patient is following commands. No aphasia and no neglect. Cranial nerves: The pupils are round, equal and reactive to light and accommodation. Visual cortes are full to confrontation throughout. Extraocular movement is intact no nystagmus is noted. Facial sensation is normal to touch throughout. The facial strength is normal throughout. Hearing is moderately decreased bilaterally to hand rub. Tongue is midline and moved [id number] without any difficulty. No dysarthria is noted. Shoulder shrug is normal bilaterally. Motor: The strength is 5 over 5 throughout. Normal tone and bulk. Cerebellum: Normal finger to nose heel to chin bilaterally. Sensation: Sensation is normal to touch throughout. Reflexes (right/left): 2+ throughout. Plantars are mute bilaterally. Results - Laboratory Findings CBC and BMP: 08/18/22 13:15 08/18/22 13:15 Abnormal Lab Findings: Abnormal Labs 08/18/22 08/18/22 08/18/22 13:02 13:15 13:15 WBC 13.1 H Hgb 16.1 H Hct 46.9 H Neutrophils # 10.6 H APTT 20.2 L BUN Glucose POC Glucose (mg/dL) 162 H Calcium TSH Urine Protein Urine Ketones Ur Leukocyte Esterase Amorphous Sediment Urine Mucus 08/18/22 08/18/22 08/18/22 13:15 13:15 21:00 WBC Hgb Hct Neutrophils # APTT BUN 31 H Glucose 156 H POC Glucose (mg/dL) Calcium 10.3 H TSH 0.176 L Urine Protein Trace H Urine Ketones 1+ H Ur Leukocyte Esterase Small H Amorphous Sediment Few H Urine Mucus Occasional H Assessment and Plan Assessment: Transient Encephalopathy of unknown etiology. Currently is oriented X3 and denies of headache, no fever, focal weakness. History of right MCA stroke (patient is not aware of it) Hypothyroidism Depression Anxiety Plan: I ordered a routine EEG to rule out any underlying seizure or discharges. Also ordered MRI of the brain to rule out any acute or subacute stroke. Recommend avoiding Buspirone since can lowers seizure threshold. Psychiatry is consulted. Ordered ESR, CRP, vitamin B12 level, folate. Started the patient on ASA 81mg daily and Lipitor 20mg qhs for secondary stroke prophylaxis. Ordered carotid duplex. Consider 2D echo to assess cardiac especially with hx of stroke that she is not aware of. For Leukocytosis unsure if reactive or has underlying infection. Will defer further work-up to primary team. Psychiatry is consulted. The plan is discussed with her nurse. Thank you for the consultation. Time with Patient: Greater than 30
[2022-08-19] MEDS: ASPIRIN 81 MG PO SCH (17:22)
[2022-08-19] MEDS: PANTOPRAZOLE 40 MG/10 ML VIAL IVP SCH (17:22)
[2022-08-19] MEDS: busPIRone HCl 5 MG TAB PO SCH ×2 (17:22→20:29)
--- NOTE | 2022-08-19 19:55 | US ---
EXAMINATION TYPE: US carotid duplex BILAT DATE OF EXAM: 08/19/2022 COMPARISON: 08/07/21 CLINICAL INDICATION: Female, 77 years old with history of stroke.; stroke TECHNIQUE: Carotid duplex ultrasound examination. Indirect Doppler criteria was utilized. FINDINGS: EXAM MEASUREMENTS: RIGHT: Peak Systolic Velocity (PSV) cm/sec ----- Right CCA: 65.1 ----- Right ICA: 108.7 ----- Right ECA: 93.5 ICA/CCA ratio: 1.7 RIGHT: End Diastole cm/sec ----- Right CCA: 15.5 ----- Right ICA: 30.5 ----- Right ECA: 7.9 LEFT: Peak Systolic Velocity (PSV) cm/sec ----- Left CCA: 67.7 ----- Left ICA: 102.5 ----- Left ECA: 102.3 ICA/CCA ratio: 1.5 LEFT: End Diastole cm/sec ----- Left CCA: 16.0 ----- Left ICA: 33.6 ----- Left ECA: 7.7 VERTEBRALS (direction of flow): Right Vertebral: Antegrade Left Vertebral: Antegrade Rhythm: Normal GRUBBER NOTES: Minimal plaque seen. No significant elevation of velocities IMPRESSION: No evidence for hemodynamically significant stenosis in the bilateral carotid arteries.
[2022-08-19] MEDS: ATORVASTATIN 20 MG TAB PO SCH (20:29)
[2022-08-19] MEDS ORDERED: IBUPROFEN 400 MG TAB PO PRN (20:59)
--- NOTE | 2022-08-19 22:45 | EEG ---
ELECTROENCEPHALOGRAM REPORT CLINICAL HISTORY: This is a 77-year-old woman with history of right MCA stroke who presented to the emergency because of altered mental status. The video EEG is obtained to evaluate for seizure epileptiform activity. RELEVANT MEDICATION: The patient is not on any antiepileptic drugs. EEG TYPE: A routine 21-channel EEG is performed with video using the 10/20 electrode placement system. DESCRIPTION: Wakefulness is only obtained. During awake state, the posterior-dominant rhythm consists of [id number] voltage of 9 to 10 hertz activity that is well modulated and well sustained. There is no physiological sleep architecture seen. There is no focal slowing. Interictal and ictal is none. ACTIVATION PROCEDURE: Photic stimulation and hyperventilation are not performed. CLINICAL INTERPRETATION: This is a normal routine EEG. There is no focal slowing, epileptiform discharge or seizure on the EEG. A normal routine EEG does not rule out underlying epilepsy. Clinical correlation is recommended. YENIFER / CLARY: [id number] /
[2022-08-20] MEDS: LEVOTHYROXINE 25 MCG TAB PO SCH (05:40)
[2022-08-20] MEDS: ASPIRIN 81 MG PO SCH (09:48)
[2022-08-20] MEDS: PANTOPRAZOLE 40 MG/10 ML VIAL IVP SCH (09:48)
[2022-08-20] MEDS: busPIRone HCl 5 MG TAB PO SCH ×2 (09:48→21:38)
[2022-08-20 10:53] LABS: Basophils # (A) 0.09 X 10*3/uL (0.00-0.10); Eosinophils # (A) 0.19 X 10*3/uL (0.04-0.35); HCT 48.6 % (37.2-46.3); HGB 15.9 d/dL (12.0-15.0); Lymphocytes # (A) 1.84 X 10*3/uL (0.90-5.00); Lymphocytes % (A) 19.5 %; MCH 32.1 pg (27.0-32.0); MCHC 32.7 d/dL (32.0-37.0); MCV 98.2 FL (80.0-97.0); Mean Platelet Volume 12.7 FL (9.5-12.2); Monocytes # (A) 0.66 X 10*3/uL (0.20-1.00); NRBC Per 100 WBC 0 X 10*3/uL (0.00-0.01); Neutrophils # (A) 6.62 X 10*3/uL (1.80-7.70); Neutrophils % (A) 70.1 %; Platelet Count 180 X 10*3/uL (140-440); RBC 4.95 X 10*6/uL (4.10-5.20); RDW 12.8 % (11.5-14.5); WBC 9.44 X 10*3/uL (4.50-10.00)
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
[2022-08-20 11:19] LABS: BUN/Creat Ratio 30.67 Ratio (12.00-20.00); Blood Urea Nitrogen 27.6 mg/dL (9.0-27.0); Calcium 9.7 mg/dL (8.7-10.3); Carbon Dioxide 25.3 mmol/L (21.6-31.8); Chloride 105 mmol/L (96-109); Glucose 148 mg/dL (70-110); Potassium 3.9 mmol/L (3.5-5.5); Sodium 142 mmol/L (135-145)
--- NOTE | 2022-08-20 14:23 | P.PN ---
Subjective Progress Note Date: 08/20/22 The patient is seen at bedside and she feels about the same. Denies of any headache, any focal weakness. Objective - Vital Signs Vital signs: Vital Signs Temp 97.6 F 08/20/22 13:16 Pulse 67 08/20/22 13:16 Resp 18 08/20/22 13:16 BP 121/80 08/20/22 13:16 Pulse Ox 96 08/20/22 13:16 FiO2 Intake & Output 08/19/22 08/20/22 08/20/22 18:59 06:59 18:59 Other: Voiding Method Toilet # Voids 3 2 - Exam GENERAL: The patient is lying in bed and is not in acute distress. NEUROLOGICAL: Higher mental function: The patient is awake, alert, oriented to self, place and time. Patient is following commands. No aphasia and no neglect. Cranial nerves: The pupils are round, equal and reactive to light and accommodation. Visual cortes are full to confrontation throughout. Extraocular movement is intact no nystagmus is noted. Facial sensation is normal to touch throughout. The facial strength is normal throughout. Hearing is moderately decreased bilaterally to hand rub. Tongue is midline and moved [id number] without any difficulty. No dysarthria is noted. Shoulder shrug is normal bilaterally. Motor: The strength is 5 over 5 throughout. Normal tone and bulk. Cerebellum: Normal finger to nose heel to chin bilaterally. Sensation: Sensation is normal to touch throughout. Reflexes (right/left): 2+ throughout. Plantars are mute bilaterally. Some of the workup during this hospital visit consisted of: Temperature is a patient has been afebrile so far. Initial white blood cells 13.1 slightly neutrophilic. Initial loss serum glucose is 162. Otherwise rest of chemistry panel is unremarkable Ammonia is less than 9. TSH is a 0.176 Free T4 is 1.35. Vitamin B-12 was 1252 Folate is 21.20 ESR 3. And CRP is less than 0.30. Urine drug screen is negative. Serum alcohol was less than 10, acetaminophen less than 10, salicylate less than 1.0. CT of the head is reported as no acute process. Remote right MCA territory injury. I personally reviewed the CT and I agree with the report. Routine EEG is normal. There is no focal slowing, epileptiform discharges or seizure on the EEG. Normal routine EEG does not rule out underlying epilepsy. Cardiac duplex was reported as no evidence for hemodynamically significant stenosis in bilateral carotid arteries. - Labs CBC & Chem 7: 08/20/22 07:51 08/20/22 07:51 Labs: Abnormal Lab Results - Last 24 Hours (Table) 08/18/22 08/20/22 08/20/22 Range/Units 13:15 07:51 07:51 Hgb 15.9 H (12.0-15.0) d/dL Hct 48.6 H (37.2-46.3) % MCV 98.2 H (80.0-97.0) FL MCH 32.1 H (27.0-32.0) pg MPV 12.7 H (9.5-12.2) FL BUN 27.6 H (9.0-27.0) mg/dL BUN/Creatinine Ratio 30.67 H (12.00-20.00) Ratio Glucose 148 H (70-110) mg/dL Vitamin B12 1252.0 H (200.0-944.0) pg/mL Assessment and Plan Assessment: Transient Encephalopathy of unknown etiology. Currently is oriented X3 and denies of headache, no fever, focal weakness. Routine EEG is normal. History of right MCA stroke (patient is not aware of it) Hypothyroidism Depression Anxiety Plan: Pending MRI of the brain to rule out any acute or subacute stroke. Recommend avoiding Buspirone since can lowers seizure threshold. Psychiatry is consulted. Started the patient on ASA 81mg daily and Lipitor 20mg qhs for secondary stroke prophylaxis. Pending 2D echo. For Leukocytosis unsure if reactive or has underlying infection. Will defer further work-up to primary team. Psychiatry is consulted. The plan is discussed with her nurse. Time with Patient: Less than 30
[2022-08-20] MEDS: ATORVASTATIN 20 MG TAB PO SCH (21:38)
[2022-08-21] MEDS: PANTOPRAZOLE 40 MG TABLET PO SCH (06:47)
[2022-08-21] MEDS: LEVOTHYROXINE 25 MCG TAB PO SCH (06:47)
[2022-08-21] MEDS: ASPIRIN 81 MG PO SCH (08:40)
[2022-08-21] MEDS: busPIRone HCl 5 MG TAB PO SCH ×2 (08:40→20:15)
--- NOTE | 2022-08-21 10:45 | MR ---
EXAMINATION TYPE: MR brain wo con DATE OF EXAM: 08/21/2022 10:35 AM COMPARISON: MR brain 08/08/2021.. CLINICAL INDICATION:Female, 77 years old with history of altered mental status. Unknown etiology; PH H TECHNIQUE: Multi planar, multi sequence imaging was performed through the brain including: T1, T2, In version recovery, Diffusion weighted imaging, and gradient echo imaging. No gadolinium was given. FINDINGS: There is a small focus of left temporal lobe cortex of restricted diffusion. Series [id number] kervin [id number]. Remote right frontal lobe injury with encephalomalacia. Ventricular dilation and upper portio n cerebral atrophy.. Scattered foci of high T2 signal intensity are seen within the periventricular white matter. Midline structures show no abnormality. The susceptibility weighted images do not revea l any evidence for micro-hemorrhage. The bone marrow signal is within normal limits. Paranasal sinuses and mastoid air cells: No significant paranasal sinus disease. Visualized orbits: Orbital contents are intact. IMPRESSION: 1. 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 2. 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 3. Nonspecific white matter changes, likely secondary to small vessel ischemic disease.
--- NOTE | 2022-08-21 14:24 | P.PN ---
Subjective Progress Note Date: 08/21/22 The patient seen at bedside and she feels about the same. Denies of any new neurological issues. Objective - Vital Signs Vital signs: Vital Signs Temp 97.8 F 08/21/22 07:03 Pulse 52 L 08/21/22 07:03 Resp 20 08/21/22 07:03 BP 135/67 08/21/22 07:03 Pulse Ox 98 08/21/22 07:03 FiO2 Intake & Output 08/20/22 08/21/22 08/21/22 18:59 06:59 18:59 Other: # Voids 1 2 - Exam GENERAL: The patient is lying in bed and is not in acute distress. NEUROLOGICAL: Higher mental function: The patient is awake, alert, oriented to self, place and time. Patient is following commands. No aphasia and no neglect. Cranial nerves: The pupils are round, equal and reactive to light and accommodation. Visual cortes are full to confrontation throughout. Extraocular movement is intact no nystagmus is noted. Facial sensation is normal to touch throughout. The facial strength is normal throughout. Hearing is moderately decreased bilaterally to hand rub. Tongue is midline and moved [id number] without any difficulty. No dysarthria is noted. Shoulder shrug is normal bilaterally. Motor: The strength is 5 over 5 throughout. Normal tone and bulk. Cerebellum: Normal finger to nose heel to chin bilaterally. Sensation: Sensation is normal to touch throughout. Reflexes (right/left): 2+ throughout. Plantars are mute bilaterally. Some of the workup during this hospital visit consisted of: Temperature is a patient has been afebrile so far. Initial white blood cells 13.1 slightly neutrophilic. Initial loss serum glucose is 162. Otherwise rest of chemistry panel is unremarkable Ammonia is less than 9. TSH is a 0.176 Free T4 is 1.35. Vitamin B-12 was 1252 Folate is 21.20 ESR 3. And CRP is less than 0.30. Urine drug screen is negative. Serum alcohol was less than 10, acetaminophen less than 10, salicylate less than 1.0. CT of the head is reported as no acute process. Remote right MCA territory injury. I personally reviewed the CT and I agree with the report. Routine EEG is normal. There is no focal slowing, epileptiform discharges or seizure on the EEG. Normal routine EEG does not rule out underlying epilepsy. Carotid duplex was reported as no evidence for hemodynamically significant stenosis in bilateral carotid arteries. MRI the brain is reported as microinfarct of the left temporal lobe cortex. 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 Nonspecific white matter changes, likely secondary due to small vessel ischemic disease. I personally reviewed the MRI and agree there is a small foci on the left hemisphere seems in the temporal/parietal region. NIH stroke scale was a 0. No IV TPA since outside the window upon, and the risk of IV tpa outweigh the benefit. - Labs CBC & Chem 7: 08/20/22 07:51 08/20/22 07:51 Assessment and Plan Assessment: Transient Encephalopathy of due to acute to subacute ischemic stroke over the left temporal/parietal (very small foci) on MRI. Currently is oriented X3 and denies of headache, no fever, focal weakness. Routine EEG is normal. History of right MCA stroke (patient is not aware of it) Hypothyroidism Depression Anxiety Plan: 2-D echo is ordered and is seems it was done but pending report I ordered the lipid panel Started the patient on ASA 81mg daily and today started Plavix 75mg daily (prior to this was not on antiplateletes). Recommend the patient to be on dual antiplatelets for 21 days and after 21 days stop Plavix but continue aspirin indefinitely. Continue Lipitor 20mg qhs for secondary stroke prophylaxis. Recommend avoiding Buspirone since can lowers seizure threshold. Psychiatry is consulted.. For Leukocytosis unsure if reactive or has underlying infection. Will defer further work-up to primary team. Psychiatry is consulted. We'll defer the rest of the medical management the primary team For DVT prophylaxis I started the patient on subcu heparin 5000 units every 12 hours Upon discharge patient is to follow up with a neurologist as outpatient within 1-2 weeks The plan is discussed with her nurse. Time with Patient: Less than 30
[2022-08-21] MEDS: CLOPIDOGREL 75 MG TAB PO SCH (15:48)
[2022-08-21] MEDS: HEPARIN SODIUM,PORCINE/PF 5,000 UNIT/0.5 ML SYRINGE SQ SCH ×2 (20:15→20:17)
[2022-08-21] MEDS: ATORVASTATIN 20 MG TAB PO SCH (20:15)
[2022-08-22] MEDS: LEVOTHYROXINE 25 MCG TAB PO SCH (05:38)
[2022-08-22] MEDS: PANTOPRAZOLE 40 MG TABLET PO SCH (06:49)
[2022-08-22] MEDS: HEPARIN SODIUM,PORCINE/PF 5,000 UNIT/0.5 ML SYRINGE SQ SCH (08:48)
[2022-08-22] MEDS: ASPIRIN 81 MG PO SCH (08:50)
[2022-08-22] MEDS: busPIRone HCl 5 MG TAB PO SCH (08:50)
[2022-08-22] MEDS: CLOPIDOGREL 75 MG TAB PO SCH (08:50)
[2022-08-22 09:49] LABS: Chol/HDL Ratio 5.93 Ratio; LDL Cholesterol,Calculated 114.5 mg/dL (0.0-131.0)
[2022-08-22 14:48] VITALS: BP 125/72; PULSE 44; RESP 19; TEMP 98.1
== END 2022-08-22 16:48 | disposition home or self-care (01) | DRG 884 ==
LOC: EDBD → EC 12:47 → MERGE 16:20 → 5NMEDONC 16:20 → 4SSUR 08-19 03:36
PROVIDERS: ADMIT Family Medicine; ATTEND Family Medicine
DX: F06.2 Psychotic disorder with delusions due to known physiological condition (principal); K76.82 Hepatic encephalopathy; G40.909 Epilepsy, unspecified, not intractable, without status epilepticus; G93.89 Other specified disorders of brain; F32.A Depression, unspecified; I16.0 Hypertensive urgency; E03.9 Hypothyroidism, unspecified; I10 Essential (primary) hypertension; D72.829 Elevated white blood cell count, unspecified; R41.9 Unspecified symptoms and signs involving cognitive functions and awareness; F41.1 Generalized anxiety disorder; R79.89 Other specified abnormal findings of blood chemistry; Z86.73 Personal history of transient ischemic attack (TIA), and cerebral infarction without residual deficits; Z79.890 Hormone replacement therapy; Z79.899 Other long term (current) drug therapy; Z79.82 Long term (current) use of aspirin; Z81.8 Family history of other mental and behavioral disorders; Z28.310 Unvaccinated for COVID-19; V49.9XXS Car occupant (driver) (passenger) injured in unspecified traffic accident, sequela; Z87.891 Personal history of nicotine dependence; Z87.820 Personal history of traumatic brain injury
CPT/HCPCS: 36415; 70450; 70551; 71046; 80048; 80053; 80061; 80143; 80179; 80306; 80320; 81001; 82140; 82607; 82746; 84439; 84443; 84484; 85025; 85610; 85652; 85730; 86140; 93005; 93306; 93880; 94760; 95816; 96361; 96374; 99285

== ENCOUNTER → 2023-12-30 | Outpatient (CLI) | payer MEDICARE ==
--- NOTE | 2024-01-10 12:54 | MM ---
Reason for Exam: Additional evaluation requested from prior study. Last mammogram was performed 5 year(s) and 7 month(s) ago. Indicated Problems: Pain of both sides (Global) for 4 Month(s). Patient History: Menarche at age 13. Patient has no children. Postmenopausal. Risk Values: Kathryn 5 year model risk: 1.9%. NCI Lifetime model risk: 3.4%. Prior Study Comparison: 02/23/2016 Left Diagnostic Mammogram, [facility]. 09/02/2016 Bilateral Screening Mammogram, [facility]. 06/09/2018 Bilateral Screening Mammogram, [facility]. 06/15/2018 Left Diagnostic Mammogram, [facility]. Tissue Density: There are scattered areas of fibroglandular density. Findings: Analyzed By CAD. The pattern is symmetrical. Significant interval change. Benign vascular calcifications within the left breast. No suspicious groups of microcalcifications, spiculated or lobular masses, architectural distortion or other secondary signs of malignancy are mammographically apparent. Overall Assessment: Benign, BI-RAD 2 Management: Screening Mammogram of both breasts in 1 year. A negative mammogram report should not preclude additional follow up of suspicious palpable abnormalities. Patient should continue monthly self breast exam. A clinical breast exam by your physician is recommended on an annual basis and results should be correlated with mammographic findings. Note on Kathryn scores and lifetime risk: 1. A Kathryn score greater than 3% is considered moderate risk. If this is the case, consider specialist referral to assess eligibility for a risk reducing agent. 2. If overall lifetime risk for the development of breast cancer is 20% or higher, the patient may qualify for future screening with alternating mammogram and breast MRI. [facility], , 12/30/2023 10:55 AM. Electronically signed and approved by: Shaw Anaya D.O. Radiologis
== END | disposition home or self-care (01) ==
LOC: RADMAMWWP 10:15
PROVIDERS: ATTEND Family Medicine
DX: N64.4 Mastodynia (principal); Z78.0 Asymptomatic menopausal state; R92.323 Mammographic fibroglandular density, bilateral breasts
CPT/HCPCS: 77066; G0279; 77062